=== PATIENT | male | born 2005 | race Caucasian/White ===

== ENCOUNTER 2023-07-12 21:07 | Emergency (ER) | payer OTHER, SELFPAY ==
--- NOTE | 2023-07-12 21:13 | ECG_ITS ---
APPROVED REPORT Exam: Resting ECG HR:119 bpm ECG Measurements Heart Rate [address] 120 P 61 QRSd 98 QRS 79 QT 291 T 60 QTc 361 Conclusion SINUS TACHYCARDIA POSSIBLE RIGHT VENTRICULAR CONDUCTION DELAY [RSR (QR) IN V1/V2] Electronically signed by : VICTORINO DEJESUS, 07/13/2023 07:14:25
--- NOTE | 2023-07-12 21:17 | XR_ITS ---
PROCEDURE INFORMATION: Exam: XR Chest Exam date and time: 07/12/2023 9:18 PM Age: 17 years old Clinical indication: Dyspnea TECHNIQUE: Imaging protocol: Radiologic exam of the chest. Views: 1 view. COMPARISON: No relevant prior studies available. FINDINGS: Lungs: No focal consolidation. Pleural spaces: No pneumothorax. Heart/Mediastinum: Unremarkable cardiomediastinal silhouette. Bones/joints: No acute osseous findings. IMPRESSION: No focal consolidation.
--- NOTE | 2023-07-12 21:18 | HMH.EDCP ---
Discharge Plan Disposition Patient Disposition: Home, Self-Care Referrals Follow up/Referrals: Kerrie Chu APRN [Nurse Practitioner] - See instructions Provider,Referral, [Referring] - See instructions Activity Restrictions/Add. Instructions Additional Instructions/Restrictions: No emergent medical condition identified from a cardiopulmonary standpoint. Please follow-up with Dr. Kerrie Chu given your chronic depression and transient suicidal ideation that you had last week. Return with any active suicidal thoughts or other concerns. Clinical Impressions Clinical Impression: Chest pain, Tachycardia, Depression Discharge ED Provider: Bernardo Amaro HPI General Chief Complaint: Chest Pain Stated Complaint: CP Time Seen by Provider: 07/12/23 21:10 History of Present Illness HPI narrative: 17-year-old male presented with chest pain. Has a history of anxiety and stress but states that has been significantly improved over the last several months. States pain is substernal nonradiating nonexertional not associate with diaphoresis cough fevers chills shortness of breath lower extremity swelling hemoptysis history of DVT PE etc. he denies any other past medical problems. States symptoms have been ongoing all day today. No recent or preceding viral illnesses. Related Data Allergies Allergy/AdvReac Type Severity Reaction Status Date / Time No Known Allergies Allergy Verified 07/12/23 21:26 [facility] Disclaimer: The information contained in this section may have been updated after the patient was seen, as this information can be updated by other users. Social History Smoking Status: Never smoker alcohol intake: never current occupational status: other Travel in the last 8 weeks: None ROS Obtained: Yes All systems reviewed & no additional complaints except as documented Physical Exam General General appearance: anxious Chest Chest inspection: Present normal inspection and symmetric chest wall rise Respiratory Respiratory exam: Present normal lung sounds bilaterally; Absent respiratory distress Cardiovascular Cardiovascular exam: Present tachycardia (Heart rate 120 on my exam) Neurological Exam Neurological exam: Present alert and oriented X3 HEART Score HEART Score HEART Score assessment performed?: Yes History (anamnesis): Moderately suspicious ECG: Non-specific disturbance Age: <45 years Risk factors: No known risk factors Troponin: </= normal limit HEART Score: 2 Critical Care Critical Care Time Critical Care Time: No Medical Decision Making Favio Inquiry Pt receiving controlled substance: No Vital Signs Vital Signs: 07/12/23 21:24 07/12/23 21:30 07/12/23 21:31 Temperature 98.6 F Temperature Source Oral Pulse Rate 92 H 116 H Pulse Rate [Left Radial] 116 H Respiratory Rate 20 18 Blood Pressure 132/74 Blood Pressure [Right Arm] 143/87 H Blood Pressure Mean 106 Blood Pressure Mean [Right Arm] 105 Blood Pressure Source [Right Arm] Automatic Cuff Blood Pressure Position [Right Arm] Sitting 02 Sat by Pulse Oximetry 100 100 Oxygen Delivery Method Room Air 07/12/23 22:00 Temperature Temperature Source Pulse Rate 92 H Pulse Rate [Left Radial] Respiratory Rate 15 Blood Pressure 126/68 Blood Pressure [Right Arm] Blood Pressure Mean 87 Blood Pressure Mean [Right Arm] Blood Pressure Source [Right Arm] Blood Pressure Position [Right Arm] 02 Sat by Pulse Oximetry 100 Oxygen Delivery Method Lab Data Lab results reviewed: Yes I reviewed the patient's lab results. Labs: Lab Results 07/12/23 21:10: WBC 6.6, RBC 5.31, Hgb 15.8, Hct 48.6, MCV 91.6, MCH 29.8, MCHC 32.6, RDW 13.5, Plt Count 285, MPV 8.7, Neut % (Auto) 56.4, Lymph % (Auto) 35.9, Canyon % (Auto) 6.1, Eos % (Auto) 0.6, Baso % (Auto) 1.0, Neut # (Auto) 3.7, Lymph # (Auto) 2.4, [place] # (Auto) 0.4, Eos # (Auto) 0.0, Baso # (Auto) 0.1, D-Dimer 0.29, Sodium 140, Potassium 4.0, Chloride 101, Carbon Dioxide 31 H, Anion Gap 12.0, BUN 12, Creatinine 1.00, Estimated Creat Clear 114, Estimated GFR 96, Est GFR ( Amer) 116, Glucose 102 H, Calcium 10.0, Total Bilirubin 0.6, AST 30, ALT 22, Alkaline Phosphatase 59, Troponin I < 0.01, Total Protein 8.1, Albumin 4.9, Globulin 3.2, Albumin/Globulin Ratio 1.5 07/12/23 21:10 07/12/23 21:10 Response Orders (Tests/Meds): ED MEDICATIONS Discontinued Medications Generic Name Dose Route Start Last Admin Trade Name Freq PRN Reason Stop Dose Admin Lactated Ringer's 1,000 mls @ 999 mls/hr 07/12/23 21:30 07/12/23 21:30 Lactated Ringer's 1000 Ml Bag IV 07/12/23 22:30 999 mls/hr .Q1H1M ODNNA Administration Ketorolac Tromethamine 15 mg 07/12/23 21:17 07/12/23 21:30 Ketorolac 30mg/Ml Vial IV 07/12/23 21:18 15 mg ONCE ONE Administration ORDERS Category Date Time Status CXR --portable [XR chest portable] Stat Exams 07/12/23 21:17 Taken CBC w/Auto Diff [Complete Blood Count Auto Diff] Stat Lab 07/12/23 21:10 Completed CMP [Comprehensive Metabolic Panel] Stat Lab 07/12/23 21:10 Completed D-Dimer Stat Lab 07/12/23 21:10 Completed Trop I [Troponin I] Stat Lab 07/12/23 21:10 Completed Troponin I Q3H Lab 07/13/23 00:30 Ordered Troponin I Q3H Lab 07/13/23 03:30 Ordered ECG Data Tracing #1: Attestation: I reviewed this ECG and interpreted as documented below: ECG Narrative: Ventricular rate of 119 sinus tachycardia normal axis no acute ischemic changes noted normal conduction MDM Narrative Medical Decision Narrative: Anxious appearing 17-year-old male present today with chest pain and tachycardia otherwise normal exam and history. He has not PERC negative given his tachycardia will get a D-dimer with a cutoff of 1.0 utilizing years criteria for a CT PE. Unlikely this is a pulmonary embolism his tachycardia is most likely secondary to his anxiety. Additionally could have myocarditis we will get a single troponin it is incredibly unlikely this is acute coronary syndrome has had symptoms all day unchanged and will not get serial troponins as I do not suspect that this is an acute coronary artery abnormality. Additional will get a chest x-ray pneumothorax pneumonia etc. on the differential as well. Will reassess shortly. Lastly to address the patient's pain and tachycardia will administer IV fluids and Toradol and reassess. Of note on nursing triage assessment and screening questionnaire patient states that he did have some suicidal ideation last week but he is no longer having any thoughts right now does not have a plan. He does desire outpatient referral to our psychiatrist and that has been made. Chest x-ray performed which I first interpreted shows no acute cardiopulmonary emergency. Reassessment 10:30 PM patient's vital significant improved heart rate in the 90s serial cardiopulmonary exams normal chest x-ray labs otherwise unremarkable no concern at this point for cardiopulmonary emergency. I did discuss with him further his depression that has been chronic and suicidal ideation he had last week he certainly does not have a plan right now will follow-up with Kerrie Chu and return with any significant worsening of his symptoms. Patient was discharged in stable and improved condition. Working diagnosis is primarily anxiety which led to his visit today.
[2023-07-12 21:24] VITALS: BP 143/87; PULSE 116; RESP 20; TEMP 37; O2SAT 100; BMI 22.1
[2023-07-12 21:30] VITALS: BP 132/74; PULSE 92; RESP 18; O2SAT 100
[2023-07-12] MEDS: LACTATED RINGERS 1000ML 1,000 ML 999 ML IV (21:30)
[2023-07-12] MEDS: KETOROLAC 30MG/ML VIAL 15 MG IV (21:30)
[2023-07-12 21:31] VITALS: PULSE 116
[2023-07-12 21:33] LABS: Alanine Aminotransferase 22 U/L (12-78); Albumin Level 4.9 g/dl (3.5-5.0); Albumin/Globulin Ratio 1.5 (1.1-1.8); Alkaline Phosphatase 59 U/L (38-126); Aspartate Amino Transferase 30 U/L (17-59); Basophils # 0.1 K/mm3 (0-0.2); Bilirubin,Total 0.6 mg/dl (0.2-1.3); Blood Urea Nitrogen 12 mg/dl (9-20); Carbon Dioxide 31 mmol/L (22.0-30.0); Chloride 101 mmol/L (98-107); Creatinine Clearance Estimated 114 mL/min (50-200); Eosinophils % 0.6 % (0.1-12.0); Estimated Glomerular Filt Rate 96 ml/min (>60); GFR (African American) 116 ML/MIN (>60); Globulin 3.2 g/dL (1.3-3.2); Glucose 102 mg/dl (74-100); Hematocrit 48.6 % (42.0-52.0); Hemoglobin 15.8 g/dL (14.1-18.0); Lymphocytes # 2.4 K/mm3 (0.7-4.5); Lymphocytes % 35.9 % (10-50); Mean Corpuscular HGB Conc 32.6 g/dL (31.8-35.4); Mean Corpuscular Hemoglobin 29.8 pg (27.0-31.2); Mean Corpuscular Volume 91.6 fl (80-94); Mean Platelet Volume 8.7 fl (7.4-10.4); Monocytes # 0.4 K/mm3 (0.1-1.0); Monocytes % 6.1 % (1.7-9.3); Neutrophils # 3.7 K/mm3 (1.8-7.8); Neutrophils % 56.4 % (37.0-80.0); Platelet Count 285 K/mm3 (142-424); Red Blood Count 5.31 M/mm3 (4.60-6.20); Red Cell Distribution Width 13.5 % (11.5-17.5); Sodium 140 mmol/L (136-145); Total Protein,Serum 8.1 g/dl (6.3-8.2); White Blood Count 6.6 K/mm3 (4.5-13.0)
[2023-07-12 21:37] LABS: D-Dimer 0.29 ug/mL (0.0-0.5)
[2023-07-12 21:54] LABS: Troponin I < 0.01 ng/ml (0.00-0.034)
[2023-07-12 22:00] VITALS: BP 126/68; PULSE 92; RESP 15; O2SAT 100
--- NOTE | 2023-07-12 22:16 | PC.NURSE ---
patient back from radiology
[2023-07-12 22:34] VITALS: BP 133/73; PULSE 87; RESP 16; TEMP 37; O2SAT 98
== END 2023-07-12 22:35 | disposition home or self-care (01) ==
PROVIDERS: Emergency Provider Student in an Organized Health Care Education/Training Program; PCP Internal Medicine
DX: R07.9 Chest pain, unspecified (principal); R00.0 Tachycardia, unspecified; F41.9 Anxiety disorder, unspecified; F32.A Depression, unspecified
CPT/HCPCS: 71045; 80053; 84484; 85025; 85378; 93005; 96361; 96374; 99284

== ENCOUNTER 2024-01-23 07:24 | Emergency (ER) | payer SELFPAY ==
[2024-01-23 07:25] VITALS: BP 155/75; PULSE 104; RESP 13; TEMP 36.8; O2SAT 100; BMI 22.1
[2024-01-23 07:29] VITALS: BP 155/75; PULSE 97; O2SAT 99
[2024-01-23 07:30] VITALS: BP 132/83; PULSE 87; O2SAT 100
[2024-01-23 07:43] VITALS: PULSE 98; O2SAT 100
[2024-01-23] MEDS: LIDOCAINE 1% W/EPI 1:100,000 20ML VIAL 10 ML SQ (07:56)
[2024-01-23 08:01] VITALS: BP 123/66
--- NOTE | 2024-01-23 08:17 | HMH.EDGENADL ---
Discharge Plan Disposition Patient Disposition: Home, Self-Care Referrals Follow up/Referrals: Sammy Maya [Primary Care Provider] - See instructions Activity Restrictions/Add. Instructions Additional Instructions/Restrictions: As discussed please clean your wound with soap and water then apply triple antibiotic ointment such as Neosporin followed by Band-Aid for the next week. Have your sutures removed in 7 days and return with any spreading redness pus coming from your wound or other concerns. Clinical Impressions Clinical Impression: Laceration of thumb Instructions Patient Instructions: DI for Laceration Repair Print Language Print Language: Mongolian Discharge ED Provider: Bernardo Amaro General Adult HPI General Chief complaint: Wound/Laceration Stated complaint: WC-Laceration to Right Thumb Time Seen by Provider: 01/23/24 07:28 Mode of Arrival: Ambulatory Source of Information: Patient Limitations: No Limitations Description of Symptoms (Recalled from ER Triage Doc. by RN): pt presents to ED for right thumb laceration. pt works in [employer]. pt reports he was cutting peppers this morning when he missed the pepper and cut his thumb. last tetanus shot in [facility]. 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 Last tetanus was just a few months ago. No injuries elsewhere. Related Data Allergies Allergy/AdvReac Type Severity Reaction Status Date / Time No Known Allergies Allergy Verified 07/12/23 21:26 [facility] Disclaimer: The information contained in this section may have been updated after the patient was seen, as this information can be updated by other users. Social History (Updated 07/12/23 @ 22:32 by Bernardo Amaro MD) Smoking Status: Never smoker alcohol intake: never current occupational status: other Travel in the last 8 weeks: None ROS Obtained: Yes All systems reviewed & no additional complaints except as documented Physical Exam General General appearance: alert and in no apparent distress Respiratory Respiratory exam: Present normal lung sounds bilaterally Cardiovascular Cardiovascular exam: Present regular rate and normal rhythm Extremities Exam Extremities exam: Present other (On the right thumb at the distal phalanx at its tip along the volar fat pad and the ulnar aspect of the tip there is a 2 cm laceration that is largely a flap but its distalmost area is still intact involving the edge of the nail border) Neurological Exam Neurological exam: Present alert and oriented X3 Medical Decision Making Medical Records Screening: Per USPSTF and CDC recommendations, given the prevalence of disease in our region, it is our hospital?s policy to screen for HIV and viral Hepatitis for all patients aged 18 and over and those with ongoing risk factors. Favio Inquiry Pt receiving controlled substance: No Vital Signs: 01/23/24 07:25 01/23/24 07:29 01/23/24 07:30 Temperature 98.2 F Temperature Source Oral Pulse Rate 97 H 87 Pulse Rate [Left Radial] 104 H Respiratory Rate 13 Blood Pressure 155/75 H 132/83 Blood Pressure [Right Arm] 155/75 H Blood Pressure Mean 119 100 Blood Pressure Mean [Right Arm] 101 02 Sat by Pulse Oximetry 100 99 100 Oxygen Delivery Method Room Air Room Air Room Air Orders (Tests/Meds): ED MEDICATIONS Discontinued Medications Generic Name Dose Route Start Last Admin Trade Name Freq PRN Reason Stop Dose Admin Lidocaine/Epinephrine 10 ml 01/23/24 07:39 01/23/24 07:56 Lidocaine 1% W/Epi 1:100,000 20ml Vial SQ 01/23/24 07:40 10 ml ONCE ONE Administration Medical Decision Narrative: 18-year-old with above history and physical presents with a superficial thumb laceration. Wound was cleaned he was anesthetized using a digital block and wound was repaired with sutures. This is a superficial flap that did appear to have an some ongoing blood supply to it but I did tell him that is possible that this flap may become necrotic and fall off which would be okay. He has been advised to keep a close eye on this from a wound management standpoint and to keep it clean with soap and water and topical antibiotic ointment and to have his sutures removed in 7 days. He was discharged in stable and improved condition. Procedures Laceration Laceration 1: Site: thumb Side (If applicable): right Size (cm): 2 Description: linear and flap Depth: simple, single layer Local Anesthetic: lidocaine 1% and with epi Amount of anesthesia used (mL): 6 (digital block ) Pre-repair: wound explored, irrigated extensively and deep structures intact Skin layer closed with: nylon Size (cm): 4-0 Number of sutures: 4 Technique: simple, interrupted Critical Care Critical Care Time Critical Care Time: No
[2024-01-23 08:33] VITALS: BP 120/66; PULSE 83; RESP 13; TEMP 36.7; O2SAT 96
[2024-01-23] MEDS: NEOSPORIN OINTMENT 0.9GM UDP 1 EACH TP (09:00)
== END 2024-01-23 08:33 | disposition home or self-care (01) ==
PROVIDERS: Emergency Provider Student in an Organized Health Care Education/Training Program; PCP Internal Medicine
DX: S61.019A Laceration without foreign body of unspecified thumb without damage to nail, initial encounter (principal); M79.646 Pain in unspecified finger(s); W26.0XXA Contact with knife, initial encounter; Y93.89 Activity, other specified; Y92.89 Other specified places as the place of occurrence of the external cause
CPT/HCPCS: 12001; 99283

== ENCOUNTER 2024-02-01 15:08 | Emergency (ER) | payer OTHER, SELFPAY ==
[2024-02-01 15:10] VITALS: BP 127/89; PULSE 76; RESP 18; TEMP 36.6; O2SAT 97; BMI 22.1
[2024-02-01 15:15] VITALS: BP 127/89; PULSE 76; RESP 18; TEMP 36.6; O2SAT 97
== END 2024-02-01 15:17 | disposition home or self-care (01) ==
LOC: UTC 15:12
PROVIDERS: Emergency Provider Nurse Practitioner Family; PCP Pediatrics
DX: Z48.02 Encounter for removal of sutures (principal)

== ENCOUNTER 2024-08-23 14:42 | Outpatient (CLI) | payer OTHER, SELFPAY ==
[2024-08-23 16:30] LABS: HIV Combo NEGATIVE (Negative)
[2024-08-23 16:38] LABS: Hepatitis C Ab Qual. W/ RFX NEGATIVE (Negative)
[2024-08-24 09:23] LABS: Hepatitis B Core Antibody, IgM Negative (Negative); Hepatitis B Surface Antigen Negative (Negative)
== END 2024-08-23 23:59 | disposition home or self-care (01) ==
LOC: LAB 14:43
PROVIDERS: PCP Internal Medicine; Visit Provider Internal Medicine
DX: Z11.3 Encounter for screening for infections with a predominantly sexual mode of transmission (principal)
CPT/HCPCS: 36415; 86705; 86803; 87340; 87389

== ENCOUNTER 2024-10-31 13:57 | Emergency (ER) | payer OTHER, SELFPAY ==
--- OUTSIDE RECORDS SUMMARY | 2024-10-31 14:11 | XMS_ITS | Clinical Summary ---
Author Organization [facility] Address [address] [place] [address] Care Team Providers [employer] Representative Name Role Phone Fabi Veliz Lurdes TERRY Primary Care Provider [phone] Allergies No known active allergies Medications atomoxetine (Strattera) 10 MG capsuleIndications :Attention or concentration deficit Take 1 capsule by mouth Daily. 30 capsule 1 Active Active Problems Problem Noted Date Diagnosed Date Encounter to establish care 05/20/2024 Attention or concentration deficit 05/20/2024 Assessment & Plan (05/23/2024 11:31 AM EST): Patient completed the adult self-report scale symptom checklist with most categories being often or very often for a total score of 24. Will start patient on regimen of Strattera 10 mg daily. He is to monitor for symptoms and report back in 4 weeks to evaluate efficacy and ability to stay on task. We discussed that this is not a stimulant medication so he should not have side effects such as palpitations or elevated blood pressure that can sometimes develop with use of medication such as Adderall or Ritalin. Immunizations Immunization Administration Dates Next Due 31-influenza Vac Quardvalent Preservativ 05/25/2023 DTaP / Hep B / IPV 11/18/2007 DTaP, Unspecified 08/15/2008,01/27/2008,12/21/19 08 Fluzone (or Fluarix & Flulav al for VFC) >6mos 02/28/2020,05/12/2017 Hep A, 2 Dose 12/15/2017, 8,11/27/2014(Defer red: Parental decision) Hep B, Adolescent or Pediatric 03/09/2008,2003 Hib (PRP-T) 11/18/2007 Hpv9 10/26/2018,12/15/2017 IPV 05/12/2017,01/27/2008,12/21/2007 Influenza, Unspecified 02/17/2024 MMR 08/25/2023,,12/21/2007,11/17 Meningococcal MCV4P (Menactra) 02/28/2020,2014 PEDS-Pneumococcal Conjugate (PCV7) 11/18/2007 PPD Test 05/25/2023 Tdap 11/27/2014 Varicella 03/09/2008,11/18/2007 Family History Medical History Relation Name Comments No Known Problems Father No Known Problems Mother Relation Name Status Comments Father Alive Mother Alive Social History Tobacco Use Types Packs/Day Years Used Date Smoking Tobacco: Never Smokeless Tobacco: Never Tobacco Cessation:Counseling Given: Not Answered Alcohol Use Standard Drinks/Week Comments Not Currently 0 (1 standard drink = 0.6 oz pur e alcohol) PHQ-2 Answer Date Recorded Patient Health Questionnaire-2 Score 1 05/20/2024 Sex and Gender Information Value Date Recorded Sex Assigned at Not on file Legal Sex Male 11:13 AM EST Gender Identity Not on file Sexual Orientation Not on file Last Filed Vital Signs Vital Sign Reading Time Taken Comments Blood Pressure 110/72 05/20/2024 3:19 PM EST Pulse 102 05/20/2024 3:19 PM EST Temperature 36.9 C (98.5 F) 05/20/2024 3:19 PM EST Respiratory Rate 18 05/20/2024 3:19 PM EST Oxygen Saturation 97% 05/20/2024 3:19 PM EST Inhaled Oxygen Concentration - - Weight 68.3 kg (150 lb 9.6 oz) 05/20/2024 3:19 P M EST Height 175.3 cm (5' 9 ) 05/20/2024 3:19 PM EST Body Mass Index 22.24 05/20/2024 3:19 PM EST Plan of Treatment Health Maintenance Due Date Last Done Comments MENINGOCOCCAL B VACCINE (1 of 2 - Standard) 2019 COVID-19 Vaccine ( - season) 2023 ANNUAL PHYSICAL 05/20/2024 HEPATITIS C SCREENING 05/20/2024 TDAP/TD VACCINES (2 - Td or Tdap) 11/27/2024 11/27/2014 INFLUENZA VACCINE 01/04/2025 02/17/2024, , 02/28/2020, Additional history exists Pneumococcal Vaccine 0-49 Aged Out 11/18/2007 No longer eligible based on patient's age to complete this topic HPV VACCINES Completed 10/26/2018, 12/15/2017 MENINGOCOCCAL VACCINE Completed 02/28/2020, 015 Insurance [facility] [employer] Representative Relationship Specialty Start Date End Date Fabi Veliz APRN [address] [place] [address] PCP - General Family Medicine 05/20/24
[2024-10-31 14:15] VITALS: BP 134/85; PULSE 87; RESP 16; TEMP 36.8; O2SAT 100; BMI 21.1
--- NOTE | 2024-10-31 14:15 | ED_ITS ---
<Statement entered by Rosie Foster DO - 11/02/24 07:05> I was consulted by the ANNE, and we discussed the complexity of the problems being addressed. I approved the treatment and management plan for this patient's care in the emergency department, thus performing a substantive portion of the medical decision making. I was involved in patient care until 3 PM at time of signout to the oncoming provider Rosie Foster DO Discharge Plan Disposition Patient Disposition: Home, Self-Care Condition: Good Prescriptions Prescriptions: No Action atomoxetine [Strattera] 40 mg capsule 40 mg PO DAILY Qty: 90 0RF dextroamphetamine-amphetamine [Adderall] 5 mg tablet 5 mg PO BID Qty: 60 0RF Rx Instructions: administer doses at least 4-6 hours apart emtricitabine-tenofovir (TDF) 200-300 mg tablet 1 tab PO DAILY Qty: 90 0RF Referrals Follow up/Referrals: Matthew Jean MD [Primary Care Provider, Medical] - See instructions Activity Restrictions/Add. Instructions Additional Instructions/Restrictions: Please follow-up with your PCP in the upcoming days/weeks, please continue take all your medication as prescribed, please follow-up with mental health provider in the upcoming days/weeks, utilize ibuprofen and Tylenol as needed for symptomatic relief. Please return to the emergency department any worsening signs or symptoms to include fever chills any nausea vomiting or changes in bowel habits. Clinical Impressions Clinical Impression: Abdominal cramping Instructions Patient Instructions: DI for Acute Abdominal Pain Print Language Print Language: Lao Discharge ED Provider: Andreas Trujillo General Adult HPI <TOMMIE Velázquez - Last Filed: 10/31/24 15:47> General Chief complaint: Abdominal Pain Stated complaint: lower back pain, abdominal pain Time Seen by Provider: 10/31/24 14:11 Mode of Arrival: Ambulatory Source of Information: Patient Limitations: No Limitations History of Present Illness HPI narrative: 18-year-old male presents to the emergency department with a less than 1 day history of lower abdominal pain describes it as crampy and intermittent, he denies any fever chills chest pain shortness of breath nausea vomiting constipation diarrhea, no melena no hematochezia no hematemesis or hemoptysis, no urinary symptomatology, patient has past medical history consistent with ADHD, recently changed from Strattera to Adderall on 10/27/2024, also of note the patient endorses suicidal ideations on 10/29/2024, states he has had previous history/SI/suicidal thoughts in the past, but no overt plan, he denies any suicidal ideation today or yesterday. When asking the patient if he feels safe at home , he states yes , but he states that his parents are gone to [place] right now , does have documented history of depression, denies any history of anxiety, denies any HI. Initial triage vitals noted for tachycardia otherwise unremarkable. Patient denies any alcohol tobacco or drug use history. Of note, it was determined by triage nurse that the patient stopped taking his Strattera , without tapering first. Please note that above description of symptoms, in this electronic medical record under categorization of recalled from ER triage doctor by RN are reflective of an initial nursing assessment, however, is not reflective of my full history and physical exam that was personally taken and clarified. Consequentially, this preceding description of symptoms, which may include the patient's categorized chief complaint in the EMR, do not reflect my personal clinical impression, and the ultimate description of history of present illness and patient stated complaints should be deferred to this section of the note. Unless stated otherwise or congruent with this section of the note, additional signs, symptoms, or incongruence should be interpreted as inaccurate with my clinical impression. Onset (ago): day(s) Related Data Previous Rx's ?Medication ?Instructions ?Recorded atomoxetine 40 mg capsule 40 mg PO DAILY #90 caps 08/04 12/29 (Strattera) dextroamphetamine-amphetamine 5 mg 5 mg PO BID #60 tab s 10/25/24 tablet (Adderall) emtricitabine 200 mg-tenofovir 1 tab PO DAILY #90 tabs 10/25/24 disoproxil fumarate 300 mg tablet Allergies Allergy/AdvReac Type Severity Reaction Status Date / Time No Known Allergies Allergy Verified 10/25/24 14:28 [facility] <TOMMIE Velázquez - Last Filed: 10/31/24 15:47> [facility] Disclaimer: The information contained in this section may have been updated after the patient was seen, as this information can be updated by other users. Social History Smoking Status: Never smoker alcohol intake: never current occupational status: other Travel in the last 8 weeks?: None Have you lived/traveled outside US in past 30 days?: No Contact w/someone who lives/traveled outside US past 30 days?: No Exposure to someone with infectious disease in past 14 days?: No Do you have a fever (greater than 100.4 F or 38 C)?: No Have you tested positive for COVID-19?: No Exposed to someone with COVID-19 in past 14 days?: No Do you have a sore throat?: No Do you have a cough?: No Do you have any weakness?: No Do you have any diarrhea?: No Are you experiencing any unusual bleeding?: No Do you have any muscle aches/pain?: No Do you have any abdominal pain?: No Are you experiencing loss of taste or smell?: No Other Medical History Have you received the Pneumonia Vaccine: No <TOMMIE Velázquez - Last Filed: 10/31/24 15:47> ROS Obtained: Yes All systems reviewed & no additional complaints except as documented Physical Exam <TOMMIE Velázquez - Last Filed: 10/31/24 15:47> General General appearance: alert and in no apparent distress Head Head exam: atraumatic and normocephalic Eye Eye exam: Present PERRL and EOMI ENT ENT exam: Present mucous membranes moist Neck Neck exam: Present normal inspection Chest Chest inspection: Present normal inspection and symmetric chest wall rise Respiratory Respiratory exam: Present normal lung sounds bilaterally; Absent respiratory distress Cardiovascular Cardiovascular exam: Present regular rate and normal rhythm Abdominal Exam Abdominal exam: Present soft; Absent tenderness, guarding, rebound, rigidity or tenderness at McBurney's Point Extremities Exam Extremities exam: Present normal inspection Neurological Exam Neurological exam: Present alert and oriented X3 Psychiatric Psychiatric exam: Present normal affect, flat affect, suicidal ideation and other Skin Skin exam: Present warm and dry Medical Decision Making <TOMMIE Velázquez - Last Filed: 10/31/24 15:47> Medical Records Medical records reviewed: Yes I reviewed the patient's medical records. Screening: Per USPSTF and CDC recommendations, given the prevalence of disease in our region, it is our hospital?s policy to screen for HIV and viral Hepatitis for all patients aged 18 and over and those with ongoing risk factors. Favio Inquiry Pt receiving controlled substance: No Favio was queried for this patient: No Vital Signs: 10/31/24 14:15 10/31/24 14:18 10/31/24 14:40 Temperature 98.2 F Temperature Source Oral Pulse Rate 104 H 82 Pulse Rate [Left] 87 Respiratory Rate 16 Blood Pressure 117/84 118/81 Blood Pressure [Right Arm] 134/85 Blood Pressure Mean 90 Blood Pressure Mean [Right Arm] 101 Blood Pressure Source Blood Pressure Source [Right Arm] Automatic Cuff Blood Pressure Position Blood Pressure Position [Right Arm] Sitting 02 Sat by Pulse Oximetry 100 100 99 Oxygen Delivery Method Room Air 10/31/24 15:48 Temperature 98.0 F Temperature Source Oral Pulse Rate 66 Pulse Rate [Left] Respiratory Rate 20 Blood Pressure 105/69 L Blood Pressure [Right Arm] Blood Pressure Mean Blood Pressure Mean [Right Arm] Blood Pressure Source Automatic Cuff Blood Pressure Source [Right Arm] Blood Pressure Position Sitting Blood Pressure Position [Right Arm] 02 Sat by Pulse Oximetry Oxygen Delivery Method Room Air Lab Data Lab results reviewed: Yes I reviewed the patient's lab results. Lab Results 10/31/24 14:07: Urine Color Yellow, Urine Appearance Clear, Urine pH 6.0, Ur Specific Laurel 1.020, Urine Protein Negative, Urine Glucose (UA) Negative, Urine Ketones Negative, Urine Blood Trace-i, Urine Nitrate Negative, Urine Bilirubin Negative, Urine Urobilinogen 0.2, Ur Leukocyte Esterase Negative, Urine RBC Occasional, Urine WBC None, Ur Squamous Epith Cells None, Urine Bacteria Trace, Urine Opiates Screen Negative, Urine Methadone Screen Negative, Ur Barbituates Screen Negative, Ur Phencyclidine Scrn Negative, Ur Amphetamines Screen Positive H, U Benzodiazepines Scrn Negative, Urine Cocaine Screen Negative, U Marijuana (THC) Screen Negative 10/31/24 14:25: WBC 6.5, RBC 5.05, Hgb 14.8, Hct 44.0, MCV 87.1, MCH 29.3, MCHC 33.6, RDW 13.0, Plt Count 243, MPV 11.1 H, Neut % (Auto) 56.8, Lymph % (Auto) 32.0, Norman % (Auto) 9.0, Eos % (Auto) 1.1, Baso % (Auto) 0.9, Neut # (Auto) 3.7, Lymph # (Auto) 2.1, Norman # (Auto) 0.6, Eos # (Auto) 0.1, Baso # (Auto) 0.1, S odium 134 L, Potassium 3.9, Chloride 100, Carbon Dioxide 26, Anion Gap 11.9, BUN 16, Creatinine 0.70, Estimated GFR 144, Est GFR ( Amer) 174, Glucose 87, Calcium 10.4 H, Total Bilirubin 0.7, AST 33, ALT 19, Alkaline Phosphatase 78, T otal Protein 8.6 H, Albumin 4.8, Globulin 3.8 H, Albumin/Globulin Ratio 1.3, Lipase 99, Salicylates < 1.0 L, Acetaminophen < 10 L, Plasma/Serum Alcohol < 10 10/31/24 14:25 10/31/24 14:25 Orders (Tests/Meds): ORDERS Category Date Time Status Behavioral Health Consult [Consult to Behavioral Health Cons 10/31/24 15:28 Active ] [CONS] Stat Acetaminophen Stat Lab 10/31/24 14:25 Completed Complete Blood Count Auto Diff Stat Lab 10/31/24 14:25 Completed Comprehensive Metabolic Panel Stat Lab 10/31/24 14:25 Completed Drug Screen,Urine Stat Lab 10/31/24 14:07 Completed Ethyl Alcohol Stat Lab 10/31/24 14:25 Completed Lipase Stat Lab 10/31/24 14:25 Completed Salicylate Stat Lab 10/31/24 14:25 Completed Urinalysis and Microscopic Stat Lab 10/31/24 14:07 Completed Medical Decision Narrative: 18-year-old male presents to the emergency department with multiple medical complaints, see HPI for detail past medical history, differential diagnosis include but not limited to, suicidal ideation, depression, acute UTI, gastritis, gastroenteritis, colitis, medication side effect among others I discussed this patient's case with the attending physician Dr. Foster and discussed this patient's case with the attending physician Dr. Trujillo Will obtain basic laboratory studies, UDS urinalysis ethyl alcohol level, lipase level, salicylate level, UA, EKG, will discussion with the patient the bedside did offer psychiatric consultation/evaluation, patient is willing and would like to pursue psychiatric consultation/evaluation at this time. Will call behavioral health specialist for consultation/evaluation in the emergency department for the patient due to history of SI. CBC is notable for no leukocytosis, otherwise unremarkable. CMP is notable for hypercalcemia that is minimal at 10.4 Salicylate level within normals, acetaminophen level within normal limits, ethyl alcohol level within normal limits UA is unremarkable, negative for nitrites, trace hematuria, trace urine bacteria, no white cells no red cells no squamous epithelial cells.\ UDS is positive for amphetamines otherwise negative. Of note I was able to speak with the behavioral health specialist (Whitney Maldonado APRN) in person at approximately 3:25 PM, see providers full consultation note for details. She believes that the patient is cleared to be discharged home to self-care pending medical clearance/workup, from a psychiatric standpoint, patient is not currently exhibiting any SI or HI, states that thoughts were fleeting, believes that patient not tapering his Strattera when switching to Adderall, with a 48-hour half-life, possible SI side effect from not tapering Strattera. Reexamination of the patient at approximately 3:40 PM, patient denies any abdominal pain currently, no nausea no vomiting, abdominal pain has subsided, has no current SI or HI or any other acute complaints, abdominal exam is benign, nontender, no rigidity guarding or rebound tenderness, I discussed all results with him at the bedside, I think amicable to be discharged home to self-care, follow-up with PCP and mental health provider, recommend ibuprofen and Tylenol for symptomatic relief of his abdominal cramping, will monitor for any worsening signs or symptoms to include fever chills persistent abdominal pain nausea vomiting or changes in bowel habits, patient voiced understanding and agreement with current treatment plan/discharge plan, strict ED return precautions were given. <Rosie Foster, DO - Last Filed: 10/31/24 15:06> Vital Signs: 10/31/24 14:15 10/31/24 14:18 10/31/24 14:40 Temperature 98.2 F Temperature Source Oral Pulse Rate 104 H 82 Pulse Rate [Left] 87 Respiratory Rate 16 Blood Pressure 117/84 118/81 Blood Pressure [Right Arm] 134/85 Blood Pressure Mean 90 Blood Pressure Mean [Right Arm] 101 Blood Pressure Source Blood Pressure Source [Right Arm] Automatic Cuff Blood Pressure Position Blood Pressure Position [Right Arm] Sitting 02 Sat by Pulse Oximetry 100 100 99 Oxygen Delivery Method Room Air 10/31/24 15:48 Temperature 98.0 F Temperature Source Oral Pulse Rate 66 Pulse Rate [Left] Respiratory Rate 20 Blood Pressure 105/69 L Blood Pressure [Right Arm] Blood Pressure Mean Blood Pressure Mean [Right Arm] Blood Pressure Source Automatic Cuff Blood Pressure Source [Right Arm] Blood Pressure Position Sitting Blood Pressure Position [Right Arm] 02 Sat by Pulse Oximetry Oxygen Delivery Method Room Air Lab Data Lab Results 10/31/24 14:07: Urine Color Yellow, Urine Appearance Clear, Urine pH 6.0, Ur Specific Laurel 1.020, Urine Protein Negative, Urine Glucose (UA) Negative, Urine Ketones Negative, Urine Blood Trace-i, Urine Nitrate Negative, Urine Bilirubin Negative, Urine Urobilinogen 0.2, Ur Leukocyte Esterase Negative, Urine RBC Occasional, Urine WBC None, Ur Squamous Epith Cells None, Urine Bacteria Trace, Urine Opiates Screen Negative, Urine Methadone Screen Negative, Ur Barbituates Screen Negative, Ur Phencyclidine Scrn Negative, Ur Amphetamines Screen Positive H, U Benzodiazepines Scrn Negative, Urine Cocaine Screen Negative, U Marijuana (THC) Screen Negative 10/31/24 14:25: WBC 6.5, RBC 5.05, Hgb 14.8, Hct 44.0, MCV 87.1, MCH 29.3, MCHC 33.6, RDW 13.0, Plt Count 243, MPV 11.1 H, Neut % (Auto) 56.8, Lymph % (Auto) 32.0, Norman % (Auto) 9.0, Eos % (Auto) 1.1, Baso % (Auto) 0.9, Neut # (Auto) 3.7, Lymph # (Auto) 2.1, Norman # (Auto) 0.6, Eos # (Auto) 0.1, Baso # (Auto) 0.1, S odium 134 L, Potassium 3.9, Chloride 100, Carbon Dioxide 26, Anion Gap 11.9, BUN 16, Creatinine 0.70, Estimated GFR 144, Est GFR ( Amer) 174, Glucose 87, Calcium 10.4 H, Total Bilirubin 0.7, AST 33, ALT 19, Alkaline Phosphatase 78, T otal Protein 8.6 H, Albumin 4.8, Globulin 3.8 H, Albumin/Globulin Ratio 1.3, Lipase 99, Salicylates < 1.0 L, Acetaminophen < 10 L, Plasma/Serum Alcohol < 10 Orders (Tests/Meds): ORDERS Category Date Time Status Behavioral Health Consult [Consult to Behavioral Health Cons 10/31/24 15:28 Active ] [CONS] Stat Acetaminophen Stat Lab 10/31/24 14:25 Completed Complete Blood Count Auto Diff Stat Lab 10/31/24 14:25 Completed Comprehensive Metabolic Panel Stat Lab 10/31/24 14:25 Completed Drug Screen,Urine Stat Lab 10/31/24 14:07 Completed Ethyl Alcohol Stat Lab 10/31/24 14:25 Completed Lipase Stat Lab 10/31/24 14:25 Completed Salicylate Stat Lab 10/31/24 14:25 Completed Urinalysis and Microscopic Stat Lab 10/31/24 14:07 Completed ECG Data Tracing #1: I reviewed this ECG and interpreted as documented below: Sinus rhythm with a ventricular rate of [address] changes concerning for STEMI. Normal axis and intervals ECG initial impression date: 10/31/24 ECG initial impression time: 15:04 <Andreas Trujillo MD - Last Filed: 10/31/24 19:35> Vital Signs: 10/31/24 14:15 10/31/24 14:18 10/31/24 14:40 Temperature 98.2 F Temperature Source Oral Pulse Rate 104 H 82 Pulse Rate [Left] 87 Respiratory Rate 16 Blood Pressure 117/84 118/81 Blood Pressure [Right Arm] 134/85 Blood Pressure Mean 90 Blood Pressure Mean [Right Arm] 101 Blood Pressure Source Blood Pressure Source [Right Arm] Automatic Cuff Blood Pressure Position Blood Pressure Position [Right Arm] Sitting 02 Sat by Pulse Oximetry 100 100 99 Oxygen Delivery Method Room Air 10/31/24 15:48 Temperature 98.0 F Temperature Source Oral Pulse Rate 66 Pulse Rate [Left] Respiratory Rate 20 Blood Pressure 105/69 L Blood Pressure [Right Arm] Blood Pressure Mean Blood Pressure Mean [Right Arm] Blood Pressure Source Automatic Cuff Blood Pressure Source [Right Arm] Blood Pressure Position Sitting Blood Pressure Position [Right Arm] 02 Sat by Pulse Oximetry Oxygen Delivery Method Room Air Lab Data Lab Results 10/31/24 14:07: Urine Color Yellow, Urine Appearance Clear, Urine pH 6.0, Ur Specific Laurel 1.020, Urine Protein Negative, Urine Glucose (UA) Negative, Urine Ketones Negative, Urine Blood Trace-i, Urine Nitrate Negative, Urine Bilirubin Negative, Urine Urobilinogen 0.2, Ur Leukocyte Esterase Negative, Urine RBC Occasional, Urine WBC None, Ur Squamous Epith Cells None, Urine Bacteria Trace, Urine Opiates Screen Negative, Urine Methadone Screen Negative, Ur Barbituates Screen Negative, Ur Phencyclidine Scrn Negative, Ur Amphetamines Screen Positive H, U Benzodiazepines Scrn Negative, Urine Cocaine Screen Negative, U Marijuana (THC) Screen Negative 10/31/24 14:25: WBC 6.5, RBC 5.05, Hgb 14.8, Hct 44.0, MCV 87.1, MCH 29.3, MCHC 33.6, RDW 13.0, Plt Count 243, MPV 11.1 H, Neut % (Auto) 56.8, Lymph % (Auto) 32.0, Norman % (Auto) 9.0, Eos % (Auto) 1.1, Baso % (Auto) 0.9, Neut # (Auto) 3.7, Lymph # (Auto) 2.1, Norman # (Auto) 0.6, Eos # (Auto) 0.1, Baso # (Auto) 0.1, S odium 134 L, Potassium 3.9, Chloride 100, Carbon Dioxide 26, Anion Gap 11.9, BUN 16, Creatinine 0.70, Estimated GFR 144, Est GFR ( Amer) 174, Glucose 87, Calcium 10.4 H, Total Bilirubin 0.7, AST 33, ALT 19, Alkaline Phosphatase 78, T otal Protein 8.6 H, Albumin 4.8, Globulin 3.8 H, Albumin/Globulin Ratio 1.3, Lipase 99, Salicylates < 1.0 L, Acetaminophen < 10 L, Plasma/Serum Alcohol < 10 Orders (Tests/Meds): ORDERS Category Date Time Status Behavioral Health Consult [Consult to Behavioral Health Cons 10/31/24 15:28 Active ] [CONS] Stat Acetaminophen Stat Lab 10/31/24 14:25 Completed Complete Blood Count Auto Diff Stat Lab 10/31/24 14:25 Completed Comprehensive Metabolic Panel Stat Lab 10/31/24 14:25 Completed Drug Screen,Urine Stat Lab 10/31/24 14:07 Completed Ethyl Alcohol Stat Lab 10/31/24 14:25 Completed Lipase Stat Lab 10/31/24 14:25 Completed Salicylate Stat Lab 10/31/24 14:25 Completed Urinalysis and Microscopic Stat Lab 10/31/24 14:07 Completed Medical Decision Narrative: 18-year-old male presents to the emergency department with multiple medical complaints, see HPI for detail past medical history, differential diagnosis include but not limited to, suicidal ideation, depression, acute UTI, gastritis, gastroenteritis, colitis, medication side effect among others I discussed this patient's case with the attending physician Dr. Foster and discussed this patient's case with the attending physician Dr. Trujillo Will obtain basic laboratory studies, UDS urinalysis ethyl alcohol level, lipase level, salicylate level, UA, EKG, will discussion with the patient the bedside did offer psychiatric consultation/evaluation, patient is willing and would like to pursue psychiatric consultation/evaluation at this time. Will call behavioral health specialist for consultation/evaluation in the emergency department for the patient due to history of SI. CBC is notable for no leukocytosis, otherwise unremarkable. CMP is notable for hypercalcemia that is minimal at 10.4 Salicylate level within normals, acetaminophen level within normal limits, ethyl alcohol level within normal limits UA is unremarkable, negative for nitrites, trace hematuria, trace urine bacteria, no white cells no red cells no squamous epithelial cells.\ UDS is positive for amphetamines otherwise negative. Of note I was able to speak with the behavioral health specialist (Whitney Maldonado APRN) in person at approximately 3:25 PM, see providers full consultation note for details. She believes that the patient is cleared to be discharged home to self-care pending medical clearance/workup, from a psychiatric standpoint, patient is not currently exhibiting any SI or HI, states that thoughts were fleeting, believes that patient not tapering his Strattera when switching to Adderall, with a 48-hour half-life, possible SI side effect from not tapering Strattera. Reexamination of the patient at approximately 3:40 PM, patient denies any abdominal pain currently, no nausea no vomiting, abdominal pain has subsided, has no current SI or HI or any other acute complaints, abdominal exam is benign, nontender, no rigidity guarding or rebound tenderness, I discussed all results with him at the bedside, I think amicable to be discharged home to self-care, follow-up with PCP and mental health provider, recommend ibuprofen and Tylenol for symptomatic relief of his abdominal cramping, will monitor for any worsening signs or symptoms to include fever chills persistent abdominal pain nausea vomiting or changes in bowel habits, patient voiced understanding and agreement with current treatment plan/discharge plan, strict ED return precautions were given. I was consulted by the ANNE, and we discussed the complexity of the problems being addressed. I approved the treatment and management plan for this patient's care in the emergency department, thus performing a substantive portion of the medical decision making. Andreas Trujillo MD Critical Care <TOMMIE Velázquez - Last Filed: 10/31/24 15:47> Critical Care Time Critical Care Time: No
[2024-10-31 14:18] VITALS: BP 117/84; PULSE 104; O2SAT 100
[2024-10-31 14:37] LABS: Microscopic, Urine URINE MICROSCOPIC (MICROSCOPIC)
[2024-10-31 14:37] LABS: Hematocrit 44.0 % (42.0-52.0); Hemoglobin 14.8 g/dL (14.1-18.0); Immature Granulocytes % 0.2 %; Mean Corpuscular HGB Conc 33.6 g/dL (31.8-35.4); Mean Corpuscular Hemoglobin 29.3 pg (27.0-31.2); Mean Corpuscular Volume 87.1 fl (80-94); Nucleated Red Blood Cells % 0 %; Platelet Count 243 K/mm3 (142-424); Red Blood Count 5.05 M/mm3 (4.60-6.20); Red Cell Distribution Width-SD 41.1 fL; White Blood Count 6.5 K/mm3 (4.5-13.0)
[2024-10-31 14:38] LABS: Bilirubin,Urine Negative (Negative); Color,Urine YELLOW (Yellow); Glucose,Urine (UA) Negative (Negative); Ketones,Urine Negative (Negative); Leukocyte Esterase,Urine Negative (Negative); PH,Urine 6.0 (5.0-8.5); Protein,Urine Negative (Negative); Specific Gravity, Urine 1.020 (1.005-1.030); Urobilinogen,Urine 0.2 EU/dl (0.2)
[2024-10-31 14:40] VITALS: BP 118/81; PULSE 82; O2SAT 99
[2024-10-31 14:40] LABS: Albumin Level 4.8 g/dl (3.5-5.0); Chloride 100 mmol/L (98-107); Potassium 3.9 mmoL/L (3.5-5.1); Sodium 134 mmol/L (136-145)
[2024-10-31 14:42] LABS: Alanine Aminotransferase 19 U/L (12-78); Aspartate Amino Transferase 33 U/L (17-59); Blood Urea Nitrogen 16 mg/dl (9-20); Creatinine,Serum 0.70 mg/dl (0.66-1.25); Estimated Glomerular Filt Rate 144 ml/min (>60); GFR (African American) 174 ML/MIN (>60)
[2024-10-31 14:43] LABS: Albumin/Globulin Ratio 1.3 (1.1-1.8); Alkaline Phosphatase 78 U/L (38-126); Anion Gap 11.9 mEq/L (5-15); Bilirubin,Total 0.7 mg/dl (0.2-1.3); Calcium 10.4 mg/dl (8.4-10.2); Carbon Dioxide 26 mmol/L (22.0-30.0); Globulin 3.8 g/dL (1.3-3.2); Glucose 87 mg/dl (74-100); Lipase 99 U/L (23-300); Total Protein,Serum 8.6 g/dl (6.3-8.2)
--- NOTE | 2024-10-31 14:45 | PC.NURSE ---
Spoke with MARA Olson at [employer] for consult she states she can be here at 4:30 for consult.
[2024-10-31 14:53] LABS: Bacteria,Urine Trace /lpf; RBC,Urine Occasional #/hpf (0-3)
[2024-10-31 14:56] LABS: Acetaminophen < 10 ug/ml (10-30); Salicylate < 1.0 mg/dL (2.0-20.0)
--- NOTE | 2024-10-31 15:01 | ECG_ITS ---
APPROVED REPORT Exam: Resting ECG HR:84 bpm ECG Measurements Heart Rate 84 AXES RI 143 P 62 QRSd 105 QRS 90 QT 345 T 61 QTc 386 Conclusion SINUS RHYTHM POSSIBLE RIGHT VENTRICULAR CONDUCTION DELAY [RSR (QR) IN V1/V2] BORDERLINE ECG Electronically signed by : FRANCO RENEE, 10/31/2024 18:01:42
[2024-10-31 15:03] LABS: Amphetamine/Metha Screen,Urine Positive ng/ml (<1000); Benzodiazepines Screen,Urine Negative ng/ml (<200)
[2024-10-31 15:04] LABS: Barbiturates Screen,Urine Negative ng/ml (<200)
[2024-10-31 15:05] LABS: Methadone Screen,Urine Negative ng/ml (<300)
[2024-10-31 15:07] LABS: Opiate Screen,Urine Negative ng/ml (<300); Phencyclidine Screen,Urine Negative ng/ml (<25)
--- NOTE | 2024-10-31 15:12 | PC.NURSE ---
[facility] has shown up to see this patient
[2024-10-31 15:48] VITALS: BP 105/69; PULSE 66; RESP 20; TEMP 36.7; O2SAT 98
--- NOTE | 2024-10-31 15:54 | P.CONS_ITS ---
History of Present Illness *Admission Date: 10/31/24 *Reason for visit:: abdominal pain/suicidal ideation *History of present illness: Patient presented to the ER for abdominal pain today. During assessment the [facility] suicide screening was completed by nursing staff and patient endorsed having some suicidal ideation on Thursday evening. Patient states that he is currently not having any suicidal ideation. Patient states that in the past around 2 years ago he did have some fleeting suicidal ideation off and on but never made a plan and never started gathering supplies or anything like that. Patient states that last Thursday he saw Dr. Jean who switched him from Strattera to Adderall. Patient states that he picked up the Adderall on and started it Thursday and was his last dose of Strattera. Patient did not wean Strattera he just stopped it. Patient states that Thursday evening a little after dinnertime he started having suicidal ideation, patient never tried to make a plan and never tried to gather any supplies. Patient states that he does not want to nor does he think that he would be better off or to not wake up up. Patient reports having a good support system. Patient denies any history of being admitted to a psychiatric facility and denies seeing a behavioral health specialist for medication management. Patient states that he does believe that he has anxiety but has not ever been treated for this and is open to trying medication for this in the future. Patient states that his primary care doctor was stopping his Strattera because it was causing abdominal pain and nausea with decreased appetite and it was not helping his mood or focus. Patient denies noticing any addictive changes since starting the Adderall other than he does not have any nausea. Patient denies any history of self-harm or any homicidal ideation. Patient reports that he feels safe to go home at this time and denies any current suicidal ideation. Patient denies any access to weapons and patient denies ever having a plan or suicidal ideation. Patient is okay with following up with behavioral health for medication management. Patient denies that he has not had any suicidal ideation since Thursday night. Patient instructed to call suicide helpline, the office or go back to the ER should he have any further suicidal ideation. Patient denies and illegal drug use or alcohol use. MENTAL STATUS EXAM:? IN THE ER TODAY MOOD: Patient is calm, cooperative, and engaged in the session today. ANXIETY: There are no apparent signs of anxiety.? APPEARANCE: Patient is normal in appearance with age appropriate dress and grooming and appears to be stated age.? APPETITE:? No issues with appetite.? No significant weight loss or weight gain. ENERGY: Energy is normal.? CONCENTRATION: WNL? IRRITABILITY: denies ?? AFFECT:? Full-range.? THOUGHT CONTENT AND PROCESS:? Hallucinations and delusions are denied and behavior is generally appropriate. Associations are intact, thinking is basically logical and thought content is appropriate. There are no signs of cognitive difficulty, based on vocabulary and fund of knowledge.? SPEECH:? Speech is normal in rate, volume, and articulation and language skills are intact.??? PSYCHOMOTOR:? There is no apparent psychomotor retardation noted at this time. ORIENTATION:? Memory is intact for recent and remote events and the patient is oriented to time, place, and person.?? SUICIDAL IDEATIONS:? Patient convincingly denies suicidal and self-injurious ideas or intentions.? HOMICIDAL IDEATIONS: Homicidal or assaultive ideas or intentions are also denied.?? INSIGHT:? Insight appears to be intact.? JUDGMENT: Judgment is intact.? [facility] Disclaimer: The information contained in this section may have been updated after the patient was seen, as this information can be updated by other users. Social History Smoking Status: Never smoker alcohol intake: never current occupational status: other Travel in the last 8 weeks?: None Have you lived/traveled outside US in past 30 days?: No Contact w/someone who lives/traveled outside US past 30 days?: No Exposure to someone with infectious disease in past 14 days?: No Do you have a fever (greater than 100.4 F or 38 C)?: No Have you tested positive for COVID-19?: No Exposed to someone with COVID-19 in past 14 days?: No Do you have a sore throat?: No Do you have a cough?: No Do you have any weakness?: No Do you have any diarrhea?: No Are you experiencing any unusual bleeding?: No Do you have any muscle aches/pain?: No Do you have any abdominal pain?: No Are you experiencing loss of taste or smell?: No Review of Systems Review of Systems Review of systems:: pertinent systems reviewed and negative unless documented below Meds Home Medications and Allergies Home Medications ?Medication ?Instructions ?Recorded ?Confirmed ?Type atomoxetine 40 mg capsule 40 mg PO DAILY #90 caps 08/0410/25/24 Rx (Strattera) dextroamphetamine-amphetamine 5 mg 5 mg PO BID #60 tab s 10/25/24 10/25/24 Rx tablet (Adderall) emtricitabine 200 mg-tenofovir 1 tab PO DAILY #90 tabs 10/25/24 10/25/24 Rx disoproxil fumarate 300 mg tablet New Prescriptions to Start Prescriptions: Allergies Allergy/AdvReac Type Severity Reaction Status Date / Time No Known Allergies Allergy Verified 10/25/24 14:28 Assessment and Plan *Assessment and plan (1) Suicidal ideation: Status: Acute Category: Medical Code(s): R45.851 - Suicidal ideations Plan: follow up with out patient behavioral health (2) Attention deficit disorder (ADD) in adult: Status: Chronic Category: Medical Code(s): F98.8 - Other specified behavioral and emotional disorders with onset usually occurring in childhood and adolescence Plan: continue adderall 5mg twice daily Plan follow up with out patient behavioral health continue adderall 5mg twice daily Rhea Suicide Severity Risk 1) Have you wished you were or wished you could go to sleep and not wake up?: Yes 2) Have you had any actual thoughts of killing yourself?: Yes 3) Have you been thinking about how you might do this?: No 4) Have you had these thoughts and had some intention of acting on them?: No 5) Have you started to work out or worked out the details of how to kill yourself? Do you intend to carry out this plan?: No 6) Have you ever done anything, started to do anything, or prepared to do any thing to end your life?: No Suicide Severity Risk Suicide Severity Risk: Low Risk
== END 2024-10-31 15:53 | disposition home or self-care (01) ==
PROVIDERS: Physician Assistant; Emergency Provider Emergency Medicine; PCP Internal Medicine
DX: R10.9 Unspecified abdominal pain (principal); R45.851 Suicidal ideations; F98.8 Other specified behavioral and emotional disorders with onset usually occurring in childhood and adolescence
CPT/HCPCS: 80053; 80307; 80320; 80329; 81001; 83690; 85025; 93005; 99285

== ENCOUNTER 2024-12-05 21:36 | Emergency (ER) | payer OTHER, SELFPAY ==
[2024-12-05 22:02] VITALS: BP 139/81; PULSE 95; RESP 18; TEMP 36.4; O2SAT 100; BMI 21.4
--- OUTSIDE RECORDS SUMMARY | 2024-12-05 22:11 | XMS_ITS | Clinical Summary ---
Author Organization [facility] Address [address] [place] [address] Care Team Providers Care Booking Clerk Name Role Phone Fabi Veliz Lurdes TERRY Primary Care Provider [phone] Allergies No known active allergies Medications atomoxetine [...] 12/15/2017 MENINGOCOCCAL VACCINE Completed 02/28/2020, 015 Insurance [facility] Care Teams Booking Clerk Relationship Specialty Start Date End Date Fabi Veliz APRN [address] [place] [address] PCP - General Family Medicine 05/20/24
[2024-12-05 22:30] VITALS: BP 115/61; PULSE 77; O2SAT 99
[2024-12-05 23:00] VITALS: BP 109/62; PULSE 77; O2SAT 99
--- NOTE | 2024-12-05 23:15 | XR_ITS ---
PROCEDURE INFORMATION: Exam: XR Chest Exam date and time: 12/05/2024 11:11 PM Age: 19 years old Clinical indication: Pain; Chest pressure; Additional info: Chest pain TECHNIQUE: Imaging protocol: Radiologic exam of the chest. Views: 2 views. COMPARISON: CR XR CHEST PORTABLE 07/12/2023 9:18 PM FINDINGS: Lungs: Unremarkable. No consolidation. Pleural spaces: Unremarkable. No pleural effusion. No pneumothorax. Heart/Mediastinum: Unremarkable. No cardiomegaly. Bones/joints: Unremarkable. IMPRESSION: No acute findings.
[2024-12-05 23:21] LABS: Hematocrit 43.3 % (42.0-52.0); Hemoglobin 14.4 g/dL (14.1-18.0); Immature Granulocytes % 0.4 %; Mean Corpuscular HGB Conc 33.3 g/dL (31.8-35.4); Mean Corpuscular Hemoglobin 29.4 pg (27.0-31.2); Mean Corpuscular Volume 88.5 fl (80-94); Nucleated Red Blood Cells % 0 %; Platelet Count 278 K/mm3 (142-424); Red Blood Count 4.89 M/mm3 (4.60-6.20); Red Cell Distribution Width-SD 42.6 fL; White Blood Count 8.5 K/mm3 (4.8-10.8)
[2024-12-05 23:23] LABS: Albumin Level 4.8 g/dl (3.5-5.0); Chloride 105 mmol/L (98-107); Potassium 3.7 mmoL/L (3.5-5.1); Sodium 140 mmol/L (136-145)
[2024-12-05 23:26] LABS: Alanine Aminotransferase 19 U/L (12-78); Albumin/Globulin Ratio 1.8 (1.1-1.8); Alkaline Phosphatase 56 U/L (38-126); Anion Gap 10.7 mEq/L (5-15); Aspartate Amino Transferase 32 U/L (17-59); Bilirubin,Total 0.4 mg/dl (0.2-1.3); Blood Urea Nitrogen 14 mg/dl (9-20); Carbon Dioxide 28 mmol/L (22.0-30.0); Creatinine Clearance Estimated 155 mL/min (50-200); Creatinine,Serum 0.70 mg/dl (0.66-1.25); Estimated Glomerular Filt Rate 142 ml/min (>60); GFR (African American) 172 ML/MIN (>60); Globulin 2.7 g/dL (1.3-3.2); Total Protein,Serum 7.5 g/dl (6.3-8.2)
[2024-12-05 23:27] LABS: Calcium 9.8 mg/dl (8.4-10.2); Glucose 107 mg/dl (74-100)
[2024-12-05 23:30] VITALS: BP 118/65; PULSE 77; O2SAT 97
[2024-12-05 23:41] LABS: Troponin I < 0.01 ng/ml (0.00-0.034)
[2024-12-05] MEDS: BELLADONNA ALKALOIDS 60 ML ML PO (23:57)
[2024-12-05] MEDS: ASPIRIN 81MG CHEWABLE TABLET 324 MG PO (23:58)
[2024-12-06 00:26] VITALS: BP 120/68; PULSE 74; RESP 18; TEMP 36.4; O2SAT 98
--- NOTE | 2024-12-06 01:07 | ED_ITS ---
Discharge Plan Disposition Patient Disposition: Home, Self-Care Condition: Good Prescriptions Prescriptions: New omeprazole 10 mg capsule,delayed release(DR/EC) 10 mg PO DAILY Qty: 14 0RF No Action dextroamphetamine-amphetamine [Adderall] 5 mg tablet 5 mg PO BID Qty: 60 0RF Rx Instructions: administer doses at least 4-6 hours apart emtricitabine-tenofovir (TDF) 200-300 mg tablet 1 tab PO DAILY Qty: 90 0RF atomoxetine 18 mg capsule 18 mg PO DAILY Qty: 30 1RF Referrals Follow up/Referrals: Matthew Jean MD [Primary Care Provider, Medical] - See instructions Activity Restrictions/Add. Instructions Additional Instructions/Restrictions: You were evaluated in the ER and are believed to be appropriate for discharge at this time. Take the prescribed omeprazole daily as directed. Avoid acidic foods and try to stop eating approximately 3 hours before laying down for bed. Make an appointment with your primary care doctor for reevaluation in 2 to 3 days. Return to the ER with any new, worsening, or otherwise concerning symptoms. Clinical Impressions Clinical Impression: Chest pain Instructions Patient Instructions: DI for Low Back Pain Print Language Print Language: Greek Discharge ED Provider: Angelia Cedillo General Adult HPI General Chief complaint: Back Pain/Injury Stated complaint: Middle back pain,High Heart Rate Time Seen by Provider: 12/05/24 23:00 Mode of Arrival: Ambulatory Source of Information: Patient Description of Symptoms (Recalled from ER Triage Doc. by RN): Pt presents with thorasic back pain that began on Thursday when he woke up. Pt denies any injury, SOB or chest pain. Pt states the pain has progressed and he is having heart palpitations as well. History of Present Illness HPI narrative: 19-year-old male presents to the ER complaining of mid upper back pain. Patient reports to me that he notices the pain when he is laying flat and that the pain then radiates into the chest as well. He states it is sharp and improves if he sits up or stands up. The symptoms have been going on for 2 days. He also reports that in the last 24 hours he has noticed some discomfort in the left side of the chest if he reaches the left arm across the body towards the right. He does not have any headache or dizziness, no numbness, tingling, or weakness, no shortness of breath, he does not describe the pain as crushing but states it is sharp when it happens. He states if he lays flat he has the discomfort and if he is upright it goes away. He denies any history of reflux, he states he does not wake up with any foul taste in his mouth, no vomiting or diarrhea. No abdominal pain. Related Data Previous Rx's ?Medication ?Instructions ?Recorded dextroamphetamine-amphetamine 5 mg 5 mg PO BID #60 tab s 10/25/24 tablet (Adderall) emtricitabine 200 mg-tenofovir 1 tab PO DAILY #90 tabs 10/25/24 disoproxil fumarate 300 mg tablet atomoxetine 18 mg capsule 18 mg PO DAILY #30 caps 11/04 06/28 omeprazole 10 mg capsule,delayed 10 mg PO DAILY #14 ca ps 12/06/24 release Allergies Allergy/AdvReac Type Severity Reaction Status Date / Time No Known Allergies Allergy Verified 11/16/24 12:10 [facility] Disclaimer: The information contained in this section may have been updated after the patient was seen, as this information can be updated by other users. Social History Smoking Status: Never smoker alcohol intake: never current occupational status: other Travel in the last 8 weeks?: None Have you lived/traveled outside US in past 30 days?: No Contact w/someone who lives/traveled outside US past 30 days?: No Exposure to someone with infectious disease in past 14 days?: No Do you have a fever (greater than 100.4 F or 38 C)?: No Have you tested positive for COVID-19?: No Exposed to someone with COVID-19 in past 14 days?: No Do you have a sore throat?: No Do you have a cough?: No Do you have any weakness?: No Do you have any diarrhea?: No Are you experiencing any unusual bleeding?: No Do you have any muscle aches/pain?: No Do you have any abdominal pain?: No Are you experiencing loss of taste or smell?: No Other Medical History Have you received the Pneumonia Vaccine: No ROS Obtained: Yes Systems reviewed as appropriate & no additional complaints except as documented Per HPI Physical Exam General General appearance: alert and in no apparent distress Head Head exam: atraumatic and normocephalic Eye Eye exam: Present PERRL and EOMI ENT ENT exam: Present mucous membranes moist Neck Neck exam: Present normal inspection and full ROM Chest Chest inspection: Present symmetric chest wall rise and other (Patient does have pain in the chest wall if I bring his left arm across his body to the right); Absent tenderness Respiratory Respiratory exam: Present normal lung sounds bilaterally; Absent respiratory distress, wheezes or stridor Cardiovascular Cardiovascular exam: Present regular rate and normal rhythm Abdominal Exam Abdominal exam: Present soft; Absent distention or tenderness Extremities Exam Extremities exam: Present full ROM; Absent edema Neurological Exam Neurological exam: Present alert and oriented X3; Absent motor sensory deficit Psychiatric Psychiatric exam: Present normal affect and normal mood Skin Skin exam: Present warm and dry Medical Decision Making Medical Records Medical records reviewed: Yes I reviewed the patient's medical records. Screening: Per USPSTF and CDC recommendations, given the prevalence of disease in our region, it is our hospital?s policy to screen for HIV and viral Hepatitis for all patients aged 18 and over and those with ongoing risk factors. Favio Inquiry Pt receiving controlled substance: No Vital Signs: 12/05/24 22:02 12/05/24 22:30 12/05/24 23:00 Temperature 97.5 F L Temperature Source Oral Pulse Rate 77 77 Pulse Rate [Right] 95 H Respiratory Rate 18 Blood Pressure 115/61 109/62 L Blood Pressure [Right Arm] 139/81 Blood Pressure Mean 79 Blood Pressure Mean [Right Arm] 100 Blood Pressure Source Blood Pressure Source [Right Arm] Automatic Cuff Blood Pressure Position Blood Pressure Position [Right Arm] Sitting 02 Sat by Pulse Oximetry 100 99 99 Oxygen Delivery Method Room Air Room Air Room Air 12/05/24 23:30 12/06/24 00:26 Temperature 97.5 F L Temperature Source Oral Pulse Rate 77 74 Pulse Rate [Right] Respiratory Rate 18 Blood Pressure 118/65 120/68 Blood Pressure [Right Arm] Blood Pressure Mean 79 Blood Pressure Mean [Right Arm] Blood Pressure Source Automatic Cuff Blood Pressure Source [Right Arm] Blood Pressure Position Sitting Blood Pressure Position [Right Arm] 02 Sat by Pulse Oximetry 97 Oxygen Delivery Method Room Air Room Air Lab Data Lab Results 12/05/24 22:14: WBC 8.5, RBC 4.89, Hgb 14.4, Hct 43.3, MCV 88.5, MCH 29.4, MCHC 33.3, RDW 13.0, Plt Count 278, MPV 10.6 H, Neut % (Auto) 72.1, Lymph % (Auto) 20.7, Drew % (Auto) 5.8, Eos % (Auto) 0.5, Baso % (Auto) 0.5, Neut # (Auto) 6.1, Lymph # (Auto) 1.8, Drew # (Auto) 0.5, Eos # (Auto) 0.0, Baso # (Auto) 0.0, Sodium 140, Potassium 3.7, Chloride 105, Carbon Dioxide 28, Anion Gap 10.7, BUN 14, Creatinine 0.70, Estimated Creat Clear 155, Estimated GFR 142, Est GFR ( Amer) 172, Glucose 107 H, Calcium 9.8, Total Bilirubin 0.4, AST 32, ALT 19, Alkaline Phosphatase 56, Troponin I < 0.01, Total Protein 7.5, Albumin 4.8, Globulin 2.7, Albumin/Globulin Ratio 1.8 12/05/24 22:14 12/05/24 22:14 Orders (Tests/Meds): ED MEDICATIONS Discontinued Medications Generic Name Dose Route Start Last Admin Trade Name Freq PRN Reason Stop Dose Admin Aspirin 324 mg 12/05/24 23:15 12/05/24 23:58 Aspirin 81mg Chewable Tablet PO 12/05/24 23:16 324 mg ONCE ONE Administration Belladonna Alkaloids 60 ml 12/05/24 23:15 12/05/24 23:57 Belladonna Alkaloids 60 Ml Ml PO 12/05/24 23:16 60 ml ONCE ONE Administration ORDERS Category Date Time Status XR chest 2V Stat Exams 12/05/24 23:15 Completed Complete Blood Count Auto Diff Stat Lab 12/05/24 22:14 Completed Comprehensive Metabolic Panel Stat Lab 12/05/24 22:14 Completed Troponin I Stat Lab 12/05/24 23:15 Completed Medical Decision Narrative: In summary, this 19-year-old male on Adderall presents to the emergency department today with back pain and chest pain. On initial evaluation patient is hemodynamically stable, afebrile, overall well-appearing, chest pain is able to be reproduced by bringing left arm across the body towards the right, wall is not tender itself, no back tenderness, no CVA tenderness, no traumatic findings, cardiopulmonary exam benign, remainder of exam benign. Differential diagnosis includes but is not limited to ACS, I considered PE but patient is PERC negative, also considered electrolyte abnormality, esophageal spasm, reflux, pneumothorax, among others. Based on these concerns, I ordered hematologic and serum labs, cardiac workup, chest x-ray. ECG personally interpreted demonstrates sinus rhythm, rate 89, normal axis, normal VA and QTc, no STEMI. Patient received aspirin, GI cocktail for treatment. Labs personally reviewed demonstrate no leukocytosis or anemia, platelets normal, CMP nonactionable, initial troponin undetectably low less than 0.01. Given patient's benign ECG and duration of symptoms as well as low heart score I do not believe patient requires serial troponins as cardiac etiology should already be presenting with elevated troponin. XR personally interpreted demonstrates no acute thoracic abnormality, see radiology read for final interpretation. On reassessment patient continues to be stable, no pain at this time. Resting comfortably. I have highest suspicion for reflux and esophageal spasm causing his symptoms since they happen at night when lying down. I believe his chest wall pain is likely musculoskeletal in etiology. I sent a prescription for omeprazole to the patient's pharmacy of choice. I recommended follow-up with his primary care doctor. Patient was given instructions on symptomatic management, follow up instructions, and return precautions for the emergency department. Patient indicated understanding and was discharged in stable condition. Critical Care Critical Care Time Critical Care Time: No
--- NOTE | 2024-12-06 23:15 | ECG_ITS ---
APPROVED REPORT Exam: Resting ECG HR:89 bpm ECG Measurements Heart Rate 89 AXES WY 155 P 110 QRSd 110 QRS 93 QT 324 T 128 QTc 371 Conclusion SINUS RHYTHM ARM LEADS REVERSED [INVERTED P AND QRS IN I] NORMAL ECG Electronically signed by : EBER TORIBIO, 12/06/2024 04:00:37
== END 2024-12-06 00:31 | disposition home or self-care (01) ==
PROVIDERS: Emergency Provider Emergency Medicine; PCP Internal Medicine
DX: R07.9 Chest pain, unspecified (principal); M54.6 Pain in thoracic spine
CPT/HCPCS: 71046; 80053; 84484; 85025; 93005; 99284; 99285

== ENCOUNTER 2025-01-16 13:18 | Emergency (ER) | payer OTHER, SELFPAY ==
[2025-01-16 13:20] VITALS: BP 157/77; PULSE 95; RESP 22; TEMP 37.1; O2SAT 100; BMI 21.7
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
--- NOTE | 2025-01-16 13:30 | ED_ITS ---
Discharge Plan Disposition Patient Disposition: Home, Self-Care Condition: Fair Prescriptions Prescriptions: New bacitracin [Bacitraycin Plus] 500 unit/gram ointment 1 applic topical DAILY Qty: 28 0RF ibuprofen 800 mg tablet 800 mg PO Q8H Qty: 30 0RF acetaminophen [Tylenol Extra Strength] 500 mg tablet 1,000 mg PO Q6H PRN (Reason: pain) Qty: 30 0RF No Action emtricitabine-tenofovir (TDF) 200-300 mg tablet 1 tab PO DAILY Qty: 90 0RF atomoxetine 18 mg capsule 18 mg PO DAILY Qty: 30 1RF atomoxetine 10 mg capsule See Rx Instructions PO DAILY Qty: 30 1RF Rx Instructions: 1 p.o. daily dextroamphetamine-amphetamine [Adderall] 10 mg tablet 10 mg PO BID Qty: 60 0RF Rx Instructions: administer doses at least 4-6 hours apart dextroamphetamine-amphetamine [Adderall] 5 mg tablet 5 mg PO BID Qty: 60 0RF Rx Instructions: administer doses at least 4-6 hours apart omeprazole 10 mg capsule,delayed release(DR/EC) 10 mg PO DAILY Qty: 14 0RF Referrals Follow up/Referrals: Matthew Jean MD [Primary Care Provider, Medical] - See instructions Activity Restrictions/Add. Instructions Additional Instructions/Restrictions: Return to emergency department if you develop fevers, worsening pain despite medicines at home, develop any numbness weakness tingling or signs of infection such as fevers, pus drainage, worsening redness extending up the arm. Change your dressings daily. Keep area clean and dry. Clinical Impressions Clinical Impression: Second degree burn Print Language Print Language: Maldivian Discharge ED Provider: Marty Do Adult [facility] General Chief complaint: Burn/Smoke Inhalation Stated complaint: WC- burn to L arm Time Seen by Provider: 01/16/25 13:30 Mode of Arrival: Ambulatory Source of Information: Patient Description of Symptoms (Recalled from ER Triage Doc. 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 Related Data Previous Rx's ?Medication ?Instructions ?Recorded emtricitabine 200 mg-tenofovir 1 tab PO DAILY #90 tabs 10/25/24 disoproxil fumarate 300 mg tablet atomoxetine 18 mg capsule 18 mg PO DAILY #30 caps 11/04 06/28 omeprazole 10 mg capsule,delayed 10 mg PO DAILY #14 ca ps 12/06/24 release dextroamphetamine-amphetamine 5 mg 5 mg PO BID #60 tab s 12/15/24 tablet (Adderall) atomoxetine 10 mg capsule See Rx Instructions PO DAILY #30 12/20/24 caps dextroamphetamine-amphetamine 10 10 mg PO BID #60 tabs 12/20/24 mg tablet (Adderall) acetaminophen 500 mg tablet 1,000 mg (2 x 500 mg) PO Q 6H PRN 01/16/25 (Tylenol Extra Strength) pain #30 tabs bacitracin 500 unit/gram topical 1 applic topical SOURAV Y #28 grams 01/16/25 ointment (Bacitraycin Plus) ibuprofen 800 mg tablet 800 mg PO Q8H #30 tabs 01/16 Allergies Allergy/AdvReac Type Severity Reaction Status Date / Time No Known Allergies Allergy Verified 12/26/24 16:45 [facility] Disclaimer: The information contained in this section may have been updated after the patient was seen, as this information can be updated by other users. Social History Smoking Status: Never smoker alcohol intake: never current occupational status: other Travel in the last 8 weeks?: None Have you lived/traveled outside US in past 30 days?: No Contact w/someone who lives/traveled outside US past 30 days?: No Exposure to someone with infectious disease in past 14 days?: No Do you have a fever (greater than 100.4 F or 38 C)?: No Have you tested positive for COVID-19?: No Exposed to someone with COVID-19 in past 14 days?: No Do you have a sore throat?: No Do you have a cough?: No Do you have any weakness?: No Do you have any diarrhea?: No Are you experiencing any unusual bleeding?: No Do you have any muscle aches/pain?: No Do you have any abdominal pain?: No Are you experiencing loss of taste or smell?: No Other Medical History Have you received the Pneumonia Vaccine: No ROS Obtained: Yes All systems reviewed & no additional complaints except as documented Physical Exam General General appearance: alert and in no apparent distress Head Head exam: atraumatic and normocephalic Eye Eye exam: Present PERRL and EOMI ENT ENT exam: Present normal oropharynx Neck Neck exam: Present full ROM and trachea midline Chest Chest inspection: Present symmetric chest wall rise Respiratory Respiratory exam: Present normal lung sounds bilaterally; Absent stridor Cardiovascular Cardiovascular exam: Present regular rate and normal rhythm Abdominal Exam Abdominal exam: Present soft; Absent distention or tenderness Extremities Exam Extremities exam: Present full ROM Neurological Exam Neurological exam: Present alert and oriented X3 Psychiatric Psychiatric exam: Present normal mood Skin Skin exam: Present warm, dry and erythema (Blanching erythema with bullae forming over areas of burn on the dorsum of the left hand and wrist) Medical Decision Making Medical Records Screening: Per USPSTF and CDC recommendations, given the prevalence of disease in our region, it is our hospital?s policy to screen for HIV and viral Hepatitis for all patients aged 18 and over and those with ongoing risk factors. Favio Inquiry Pt receiving controlled substance: No Vital Signs: 01/16/25 13:20 Temperature 98.7 F Temperature Source Oral Pulse Rate [Right] 95 H Respiratory Rate 22 Blood Pressure [Right Arm] 157/77 H Blood Pressure Mean [Right Arm] 103 Blood Pressure Source [Right Arm] Automatic Cuff Blood Pressure Position [Right Arm] Sitting 02 Sat by Pulse Oximetry 100 Oxygen Delivery Method Room Air Orders (Tests/Meds): ED MEDICATIONS Generic Name Dose Route Start Last Admin Trade Name Freq PRN Reason Stop Dose Admin Bacitracin 1 gm 01/16/25 14:26 Bacitracin Zinc Oint 30gm Tube TP 01/16/25 14:27 ONCE ONE Discontinued Medications Generic Name Dose Route Start Last Admin Trade Name Freq PRN Reason Stop Dose Admin Hydromorphone HCl 1 mg 01/16/25 13:34 01/16/25 13:40 Hydromorphone 2mg/Ml Syringe IV 01/16/25 13:35 1 mg ONCE ONE Administration Ondansetron HCl 4 mg 01/16/25 13:34 01/16/25 13:39 Ondansetron 4mg/2ml Vial IV 01/16/25 13:35 4 mg ONCE ONE Administration Tetanus/Reduced Diphtheria/Acell Pertussis 0.5 ml 01/16/25 13:48 Tet/Diphth/Pert-Adult 0.5ml Syringe IM 01/16/25 13:49 .ONCE ONE Medical Decision Narrative: Patient is a 19-year-old male with no medical history presents today after a chemical burn at work. He was working at the [employer] and placed scotch bright quick clean griddle liquid on a clean grill that was hot. It splashed up and landed on his left arm on the dorsum of his left hand and into his left forearm. He denies any numbness tingling or weakness. Has taken no pain medicines. Ran it under water immediately for about a couple of seconds, but then stopped due to pain, applied Silvadene cream and presented here. He denies any inhalation or ingestion of this. On arrival, he is afebrile, mildly hypertensive and mildly tachycardic, but otherwise stable. On exam is warm and well-perfused with full pulses and brisk capillary refill. Has blanching erythema over the dorsum of the left left hand extending into the left forearm. Already second- degree escobedo, no evidence of circumferential escobedo. No swelling. He has full range of motion of his hands. Good pulse exam. We will wash the wound thoroughly after pain control. Update Tdap as he is unknown last known Tdap. I did interactive discussion with Po[facility] Control [facility] and they agree with symptomatic treatment for thermal escobedo. On reassessment after irrigation, patient does have blistering over the dorsum of the hand. There is no circumferential burning. His pain is well-controlled. Bacitracin, wound care. Follow-up with PCP. Strict return precautions are discussed, questions answered, amenable to plan and discharge. Critical Care Critical Care Time Critical Care Time: No
[2025-01-16] MEDS: ONDANSETRON 4MG/2ML VIAL 4 MG IV (13:39)
[2025-01-16] MEDS: HYDROMORPHONE 2MG/ML SYRINGE 1 MG IV (13:40)
--- NOTE | 2025-01-16 13:48 | PC.NURSE ---
Lab notified of the need for an employee workers comp drug screen.
--- NOTE | 2025-01-16 13:53 | PC.NURSE ---
speaking with poison control.
--- OUTSIDE RECORDS SUMMARY | 2025-01-16 14:03 | XMS_ITS | Clinical Summary ---
Author Organization [facility] Address [address] [place] [address] Care Team Providers Care [employer] Name Role Phone Fabi Veliz Lurdes TERRY Primary Care Provider [phone] Allergies No known active allergies Medications atomoxetine [...] VACCINE (1 of 2 - Standard) 2019 ANNUAL PHYSICAL 05/20/2024 HEPATITIS C SCREENING 05/20/2024 INFLUENZA VACCINE 11/04/2024 02/17/2024, , 02/28/2020, Additional history exists TDAP/TD VACCINES (2 - Td or Tdap) 11/27/2024 11/27/2014 Pneumococcal Vaccine 0-49 Aged Out 11/18/2007 No longer eligible based on patient's age to complete this topic HPV VACCINES Completed 10/26/2018, 12/15/2017 MENINGOCOCCAL VACCINE Completed 02/28/2020, 015 Insurance [facility] Care Teams [employer] Relationship Specialty Start Date End Date Fabi Veliz APRN [address] [place] [address] PCP - General Family Medicine 05/20/24
--- NOTE | 2025-01-16 14:38 | PC.NURSE ---
pt received IV dose of dilaudid prior to workers comp UDS
[2025-01-16 14:51] LABS: COC Drug Screen In House Collection Only
[2025-01-16] MEDS: BACITRACIN ZINC OINT 30GM TUBE TP (15:18)
[2025-01-16] MEDS: TET/DIPHTH/PERT-ADULT 0.5ML SYRINGE 0.5 ML IM (15:18)
[2025-01-16 15:31] VITALS: BP 130/75; PULSE 90; RESP 18; TEMP 36.9; O2SAT 99
== END 2025-01-16 15:32 | disposition home or self-care (01) ==
PROVIDERS: Emergency Provider Emergency Medicine; PCP Internal Medicine
DX: T22.212A Burn of second degree of left forearm, initial encounter (principal); T23.202A Burn of second degree of left hand, unspecified site, initial encounter; X19.XXXA Contact with other heat and hot substances, initial encounter
CPT/HCPCS: 80305; 90471; 90715; 96374; 96375; 99284; J1171; J2405

== ENCOUNTER 2025-02-23 14:56 | Outpatient (CLI) | payer OTHER, SELFPAY | END 2025-02-23 23:59 | disposition home or self-care (01) | LOC: LAB 14:56 | PROVIDERS: PCP Internal Medicine; Visit Provider Internal Medicine | DX: Z79.899 Other long term (current) drug therapy (principal) | CPT/HCPCS: 36415; 87389 ==

== ENCOUNTER 2025-04-05 14:37 | Emergency (ER) | payer OTHER, SELFPAY ==
--- NOTE | 2025-04-05 14:39 | ED_ITS ---
<Statement entered by Brian Stephens MD - 04/06/25 15:13> Brian Stephens MD: I was consulted by the ANNE, and we discussed the complexity of the problems being addressed. I approve the treatment and management plan for this patient's care in the emergency department, thus performing a substantive portion of the medical decision making. Discharge Plan Disposition Patient Disposition: Home, Self-Care Condition: Good Prescriptions Prescriptions: No Action emtricitabine-tenofovir (TDF) 200-300 mg tablet 1 tab PO DAILY Qty: 90 1RF dextroamphetamine-amphetamine [Adderall] 10 mg tablet 10 mg PO BID Qty: 60 0RF Rx Instructions: administer doses at least 4-6 hours apart-name brand requested, do not substitute ibuprofen 800 mg tablet 800 mg PO Q8H Qty: 30 0RF acetaminophen [Tylenol Extra Strength] 500 mg tablet 1,000 mg PO Q6H PRN (Reason: pain) Qty: 30 0RF Referrals Follow up/Referrals: Matthew Jean MD [Primary Care Provider, Medical] - See instructions Activity Restrictions/Add. Instructions Additional Instructions/Restrictions: You were evaluated on an emergency basis. It is very important that you follow- up with your primary care provider and any specialist who we discussed within the next 2 days in order to better assess your health more comprehensively. For example, incidental findings on imaging or laboratory results that were performed today may be discovered, which do not require immediate medical care, but may impact your health in the future. If your symptoms worsen or persist, please return to the emergency department immediately for reassessment. Take all medications as prescribed. In queue for allowing me to participate in your health care, and I hope you feel better soon. Clinical Impressions Clinical Impression: Viral illness Instructions Patient Instructions: DI for Viral Upper Respiratory Infection in Adults Print Language Print Language: American Discharge ED Provider: Brian Stephens General Adult HPI <Princessphuc Cohenmaribeth - Last Filed: 04/05/25 16:17> General Chief complaint: Chest Pain Stated complaint: SOA, pain when inhaling, back pain, vomiting, dizz Time Seen by Provider: 04/05/25 14:52 History of Present Illness HPI narrative: 19-year-old male presents emergency department with complaints of cough, painful inspiration, nausea with headaches this morning. He denies fever, vomiting, diarrhea. Related Data Previous Rx's ?Medication ?Instructions ?Recorded acetaminophen 500 mg tablet 1,000 mg (2 x 500 mg) PO Q 6H PRN 01/16/25 (Tylenol Extra Strength) pain #30 tabs ibuprofen 800 mg tablet 800 mg PO Q8H #30 tabs 01/16 emtricitabine 200 mg-tenofovir 1 tab PO DAILY #90 tabs 01/19/25 disoproxil fumarate 300 mg tablet dextroamphetamine-amphetamine 10 10 mg PO BID #60 tabs 03/06/25 mg tablet (Adderall) Allergies Allergy/AdvReac Type Severity Reaction Status Date / Time No Known Allergies Allergy Verified 03/08/25 15:24 PFS <Princess Yoder - Last Filed: 04/05/25 16:17> [facility] Disclaimer: The information contained in this section may have been updated after the patient was seen, as this information can be updated by other users. Social History Smoking Status: Never smoker alcohol intake: never current occupational status: other Travel in the last 8 weeks?: None Have you lived/traveled outside US in past 30 days?: No Contact w/someone who lives/traveled outside US past 30 days?: No Exposure to someone with infectious disease in past 14 days?: No Do you have a fever (greater than 100.4 F or 38 C)?: No Have you tested positive for COVID-19?: No Exposed to someone with COVID-19 in past 14 days?: No Do you have a sore throat?: No Do you have a cough?: Yes Do you have any weakness?: No Do you have any diarrhea?: No Are you experiencing any unusual bleeding?: No Do you have any muscle aches/pain?: No Do you have any abdominal pain?: No Are you experiencing loss of taste or smell?: No Other Medical History Have you received the Pneumonia Vaccine: No <Princess Yoder - Last Filed: 04/05/25 16:17> ROS Obtained: Yes other Constitutional Constitutional: Reports headache(s) ENT Ears, Nose, Mouth, and Throat: Reports headache(s) Cardiovascular Cardiovascular: Reports other (Chest pain with inspiration) Respiratory Respiratory: Reports cough Gastrointestinal Gastrointestingal: Reports nausea Neurologic Neurologic: Reports headache(s) Physical Exam <Princess Yoder - Last Filed: 04/05/25 16:17> Narrative Physical exam: General: Awake, aware, in no acute distress HEENT: Normocephalic, no evidence of trauma CV: RRR, no murmurs, rubs, or gallops Pulm: CTA bilaterally with no rhonchi, rales, wheezes ABD: Nontender, no swelling, guarding, or rebound tenderness Psych, appropriate mood and affect General General appearance: alert Respiratory Respiratory exam: Present normal lung sounds bilaterally Cardiovascular Cardiovascular exam: Present regular rate Neurological Exam Neurological exam: Present alert Medical Decision Making <Princess Yoder - Last Filed: 04/05/25 16:17> Medical Records Screening: Per USPSTF and CDC recommendations, given the prevalence of disease in our region, it is our hospital?s policy to screen for HIV and viral Hepatitis for all patients aged 18 and over and those with ongoing risk factors. Favio Inquiry Pt receiving controlled substance: No Vital Signs: 04/05/25 14:53 04/05/25 14:58 Temperature 99.0 F Temperature Source Oral Pulse Rate 90 Pulse Rate [Left Radial] 90 Respiratory Rate 18 Blood Pressure [Right Arm] 128/68 Blood Pressure Mean [Right Arm] 88 Blood Pressure Source [Right Arm] Automatic Cuff Blood Pressure Position [Right Arm] Sitting 02 Sat by Pulse Oximetry 100 Oxygen Delivery Method Room Air Lab Data Lab Results 04/05/25 14:56: SARS-CoV-2 (PCR) Not detected, Influenza A Untype (PCR) Not detected, Influenza Type B (PCR) Not detected 04/05/25 14:59: WBC 6.6, RBC 4.80, Hgb 14.3, Hct 42.1, MCV 87.7, MCH 29.8, MCHC 34.0, RDW 12.3, Plt Count 265, MPV 10.6 H, Neut % (Auto) 63.2, Lymph % (Auto) 27.9, Mcdowell % (Auto) 7.3, Eos % (Auto) 0.6, Baso % (Auto) 0.8, Neut # (Auto) 4.2, Lymph # (Auto) 1.8, Mcdowell # (Auto) 0.5, Eos # (Auto) 0.0, Baso # (Auto) 0.1, D- Dimer 0.39, Sodium 137, Potassium 3.9, Chloride 102, Carbon Dioxide 26, Anion Gap 12.9, BUN 24 H, Creatinine 1.10, Estimated Creat Clear 99, Estimated GFR 85, Est GFR ( Amer) 102, Glucose 95, Calcium 9.2, Total Bilirubin 0.4, AST 34, ALT 20, Alkaline Phosphatase 70, Troponin I < 0.01, Total Protein 7.8, Albumin 4.8, Globulin 3.0, Albumin/Globulin Ratio 1.6 04/05/25 14:59 04/05/25 14:59 Orders (Tests/Meds): ED MEDICATIONS Discontinued Medications Generic Name Dose Route Start Last Admin Trade Name Freq PRN Reason Stop Dose Admin Ketorolac Tromethamine 15 mg 04/05/25 15:00 04/05/25 15:06 Ketorolac 15mg/Ml Vial IV 04/05/25 15:01 15 mg ONCE ONE Administration Ondansetron HCl 4 mg 04/05/25 15:00 04/05/25 15:06 Ondansetron 4mg/2ml Vial IV 04/05/25 15:01 4 mg ONCE ONE Administration ORDERS Category Date Time Status XR chest portable Stat Exams 04/05/25 15:00 Taken Complete Blood Count Auto Diff Stat Lab 04/05/25 14:59 Completed Comprehensive Metabolic Panel Stat Lab 04/05/25 14:59 Completed D-Dimer Stat Lab 04/05/25 14:59 Completed Rapid PCR Covid and Flu A/B Stat Lab 04/05/25 14:56 Completed Troponin I Q3H Lab 04/05/25 18:00 Ordered Troponin I Q3H Lab 04/05/25 21:00 Ordered Troponin I Stat Lab 04/05/25 14:59 Completed Medical Decision Narrative: Initial impression of presenting illness: 19-year-old male presents emergency department with complaints of cough, painful inspiration, headache, nausea since this morning. He has not take any medication for symptom relief prior to arrival. He denies fever, vomiting, diarrhea. Differential diagnosis includes but is not limited to: Viral illness, ACS, pneumonia, PE, dehydration Patient arrives hemodynamically stable, afebrile, without respiratory distress with vital signs interpreted by myself. Initial physical exam unremarkable Initial diagnostic plan: ACS workup including COVID and flu swab as well as D- dimer. Zofran for nausea, Toradol for pain control Results from initial plan were reviewed and interpreted by myself, pertinent positives include: Laboratory studies were nonactionable including troponin and D-dimer. COVID and flu swabs were negative. Chest x-ray as interpreted by ED attending Dr. Trujillo was unremarkable for acute findings. Since patient's symptoms have been going on longer than 6 hours serial troponins were not needed at this time. Interventions in the ED: Patient was given Zofran and Toradol for pain control. Patient was made aware of the results and the findings, upon reevaluation patient has remained stable throughout stay, symptoms remained stable. Upon reevaluation patient is resting comfortably in his room with no signs of acute distress. He has not had any vomiting or diarrhea during his ER stay. Patient is maintaining SpO2 without difficulty on room air. Disposition: Advised patient that workup findings were unremarkable. Informed him his symptoms are consistent with a viral respiratory illness. Recommended that he continue with Tylenol and ibuprofen as needed for pain and fever control as well as increase fluids and rest. Instructed him to return to the emergency department any new or worsening symptoms. Patient is agreeable to plan of care. Patient made aware of findings and had a detailed discussion with symptomatic care and return precautions, patient voiced understanding. <Andreas Trujillo MD - Last Filed: 04/05/25 16:25> Vital Signs: 04/05/25 14:53 04/05/25 14:58 Temperature 99.0 F Temperature Source Oral Pulse Rate 90 Pulse Rate [Left Radial] 90 Respiratory Rate 18 Blood Pressure [Right Arm] 128/68 Blood Pressure Mean [Right Arm] 88 Blood Pressure Source [Right Arm] Automatic Cuff Blood Pressure Position [Right Arm] Sitting 02 Sat by Pulse Oximetry 100 Oxygen Delivery Method Room Air Lab Data Lab Results 04/05/25 14:56: SARS-CoV-2 (PCR) Not detected, Influenza A Untype (PCR) Not detected, Influenza Type B (PCR) Not detected 04/05/25 14:59: WBC 6.6, RBC 4.80, Hgb 14.3, Hct 42.1, MCV 87.7, MCH 29.8, MCHC 34.0, RDW 12.3, Plt Count 265, MPV 10.6 H, Neut % (Auto) 63.2, Lymph % (Auto) 27.9, Mcdowell % (Auto) 7.3, Eos % (Auto) 0.6, Baso % (Auto) 0.8, Neut # (Auto) 4.2, Lymph # (Auto) 1.8, Mcdowell # (Auto) 0.5, Eos # (Auto) 0.0, Baso # (Auto) 0.1, D- Dimer 0.39, Sodium 137, Potassium 3.9, Chloride 102, Carbon Dioxide 26, Anion Gap 12.9, BUN 24 H, Creatinine 1.10, Estimated Creat Clear 99, Estimated GFR 85, Est GFR ( Amer) 102, Glucose 95, Calcium 9.2, Total Bilirubin 0.4, AST 34, ALT 20, Alkaline Phosphatase 70, Troponin I < 0.01, Total Protein 7.8, Albumin 4.8, Globulin 3.0, Albumin/Globulin Ratio 1.6 Orders (Tests/Meds): ED MEDICATIONS Discontinued Medications Generic Name Dose Route Start Last Admin Trade Name Freq PRN Reason Stop Dose Admin Ketorolac Tromethamine 15 mg 04/05/25 15:00 04/05/25 15:06 Ketorolac 15mg/Ml Vial IV 04/05/25 15:01 15 mg ONCE ONE Administration Ondansetron HCl 4 mg 04/05/25 15:00 04/05/25 15:06 Ondansetron 4mg/2ml Vial IV 04/05/25 15:01 4 mg ONCE ONE Administration ORDERS Category Date Time Status XR chest portable Stat Exams 04/05/25 15:00 Taken Complete Blood Count Auto Diff Stat Lab 04/05/25 14:59 Completed Comprehensive Metabolic Panel Stat Lab 04/05/25 14:59 Completed D-Dimer Stat Lab 04/05/25 14:59 Completed Rapid PCR Covid and Flu A/B Stat Lab 04/05/25 14:56 Completed Troponin I Q3H Lab 04/05/25 18:00 Ordered Troponin I Q3H Lab 04/05/25 21:00 Ordered Troponin I Stat Lab 04/05/25 14:59 Completed ECG Data Tracing #1: Independently interpreted by me rate is 1, rhythm is regular, axis is borderline right deviated, no ST elevation in anatomical contiguous leads, QTc 375. Medical Decision Narrative: Initial impression of presenting illness: 19-year-old male presents emergency department with complaints of cough, painful inspiration, headache, nausea since this morning. He has not take any medication for symptom relief prior to arrival. He denies fever, vomiting, diarrhea. Differential diagnosis includes but is not limited to: Viral illness, ACS, pneumonia, PE, dehydration Patient arrives hemodynamically stable, afebrile, without respiratory distress with vital signs interpreted by myself. Initial physical exam unremarkable Initial diagnostic plan: ACS workup including COVID and flu swab as well as D- dimer. Zofran for nausea, Toradol for pain control Results from initial plan were reviewed and interpreted by myself, pertinent positives include: Laboratory studies were nonactionable including troponin and D-dimer. COVID and flu swabs were negative. Chest x-ray as interpreted by ED attending Dr. Trujillo was unremarkable for acute findings. Since patient's symptoms have been going on longer than 6 hours serial troponins were not needed at this time. Interventions in the ED: Patient was given Zofran and Toradol for pain control. Patient was made aware of the results and the findings, upon reevaluation patient has remained stable throughout stay, symptoms remained stable. Upon reevaluation patient is resting comfortably in his room with no signs of acute distress. He has not had any vomiting or diarrhea during his ER stay. Patient is maintaining SpO2 without difficulty on room air. Disposition: Advised patient that workup findings were unremarkable. Informed him his symptoms are consistent with a viral respiratory illness. Recommended that he continue with Tylenol and ibuprofen as needed for pain and fever control as well as increase fluids and rest. Instructed him to return to the emergency department any new or worsening symptoms. Patient is agreeable to plan of care. Patient made aware of findings and had a detailed discussion with symptomatic care and return precautions, patient voiced understanding. Andreas Trujillo MD: I was consulted by the ANNE, and we discussed the complexity of the problems being addressed. I approved the treatment and management plan for this patient's care in the emergency department, thus performing a substantive portion of the medical decision making. Critical Care <Princess Yoder - Last Filed: 04/05/25 16:17> Critical Care Time Critical Care Time: No
[2025-04-05 14:53] VITALS: BP 128/68; PULSE 90; RESP 18; TEMP 37.2; O2SAT 100; BMI 21.4
--- OUTSIDE RECORDS SUMMARY | 2025-04-05 14:53 | XMS_ITS | Clinical Summary ---
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 Immunizations Immunization Administration Dates Next Due -influenza Vac Quardvalent Preservativ 05/25/2023 DTaP / Hep [...] 12/15/2017 MENINGOCOCCAL VACCINE Completed 02/28/2020, 015 Insurance [facility] Care Teams Truck Shop Mechanic Relationship Specialty Start Date End Date Fabi Veliz APRN [address] [place] [address] PCP - General Family Medicine 05/20/24
[2025-04-05 14:58] VITALS: PULSE 90
--- NOTE | 2025-04-05 15:00 | ECG_ITS ---
APPROVED REPORT Exam: Resting ECG HR:101 bpm ECG Measurements Heart Rate 101 AXES CA 147 P 62 QRSd 96 QRS 95 QT 317 T 64 QTc 375 Conclusion SINUS TACHYCARDIA BORDERLINE RIGHT AXIS DEVIATION [QRS AXIS > 90] POSSIBLE RIGHT VENTRICULAR CONDUCTION DELAY [RSR (QR) IN V1/V2] ST ELEVATION, PROBABLY EARLY REPOLARIZATION [ST ELEVATION WITH NORMALLY INFLECTED T-WAVE] ABNORMAL RHYTHM ECG INTERPRETATION BASED ON A DEFAULT AGE OF 38 YEARS Electronically signed by : FRANCO RENEE, 04/05/2025 21:52:22
--- NOTE | 2025-04-05 15:00 | XR_ITS ---
FINAL REPORT TECHNIQUE: Single view chest CLINICAL HISTORY: cough/cp COMPARISON: 12/06/2024 FINDINGS: A single view of the chest was obtained. The heart and mediastinum are within normal limits. The lungs are clear. There is no pneumothorax. IMPRESSION: No acute cardiopulmonary process. Reviewed, Interpreted and Dictated by Sue Pinzon MD Transcribed by Yudy Villegas Authenticated and . [facility]
[2025-04-05 15:05] LABS: Coronavirus 19, PCR Not Detected (NotDetected); Influenza A, PCR Not Detected (NotDetected); Influenza B, PCR Not Detected (NotDetected)
[2025-04-05] MEDS: ONDANSETRON 4MG/2ML VIAL 4 MG IV (15:06)
[2025-04-05] MEDS: KETOROLAC 15MG/ML VIAL 15 MG IV (15:06)
[2025-04-05 15:07] LABS: Hematocrit 42.1 % (42.0-52.0); Hemoglobin 14.3 g/dL (14.1-18.0); Immature Granulocytes % 0.2 %; Mean Corpuscular HGB Conc 34.0 g/dL (31.8-35.4); Mean Corpuscular Hemoglobin 29.8 pg (27.0-31.2); Mean Corpuscular Volume 87.7 fl (80-94); Nucleated Red Blood Cells % 0 %; Platelet Count 265 K/mm3 (142-424); Red Blood Count 4.80 M/mm3 (4.60-6.20); Red Cell Distribution Width-SD 39.6 fL; White Blood Count 6.6 K/mm3 (4.8-10.8)
[2025-04-05 15:26] LABS: Alanine Aminotransferase 20 U/L (12-78); Albumin Level 4.8 g/dl (3.5-5.0); Albumin/Globulin Ratio 1.6 (1.1-1.8); Alkaline Phosphatase 70 U/L (38-126); Anion Gap 12.9 mEq/L (5-15); Aspartate Amino Transferase 34 U/L (17-59); Bilirubin,Total 0.4 mg/dl (0.2-1.3); Blood Urea Nitrogen 24 mg/dl (9-20); Calcium 9.2 mg/dl (8.4-10.2); Carbon Dioxide 26 mmol/L (22.0-30.0); Chloride 102 mmol/L (98-107); Creatinine Clearance Estimated 99 mL/min (50-200); Creatinine,Serum 1.10 mg/dl (0.66-1.25); Estimated Glomerular Filt Rate 85 ml/min (>60); GFR (African American) 102 ML/MIN (>60); Globulin 3.0 g/dL (1.3-3.2); Glucose 95 mg/dl (74-100); Potassium 3.9 mmoL/L (3.5-5.1); Sodium 137 mmol/L (136-145); Total Protein,Serum 7.8 g/dl (6.3-8.2)
[2025-04-05 15:32] LABS: D-Dimer 0.39 ug/mL (0.0-0.5)
[2025-04-05 15:42] LABS: Troponin I < 0.01 ng/ml (0.00-0.034)
[2025-04-05 16:35] VITALS: BP 100/66; PULSE 79; RESP 16; TEMP 36.7; O2SAT 97
== END 2025-04-05 16:38 | disposition home or self-care (01) ==
PROVIDERS: Nurse Practitioner Family; Emergency Provider Student in an Organized Health Care Education/Training Program; PCP Internal Medicine
DX: R07.1 Chest pain on breathing (principal); R06.02 Shortness of breath; R11.2 Nausea with vomiting, unspecified; R51.9 Headache, unspecified; B34.9 Viral infection, unspecified
CPT/HCPCS: 71045; 80053; 84484; 85025; 85378; 87636; 93005; 96374; 96375; 99285; J1885; J2405